=== PATIENT | male | born 1955 | race Two or more races ===

== ENCOUNTER 2019-10-06 14:23 | Outpatient (CLI) | payer MEDICARE, OTHER, SELFPAY ==
--- NOTE | 2019-10-06 14:34 | XR_ITS ---
WS: [id number] XR hip RT 2-3V wo/w pel* [id number] REASON FOR EXAM: PAIN IN JOINT OF RIGHT HIP/R HIP REPLACEMENT FINDINGS: There is evidence of fusion through the acetabulum. With a metal plate in position. In total hip arthroplasty with 2 components is seen bone cemented seen in the acetabulum. Acetabulum component is satisfactory as well as the femoral shaft component no dysfunction is seen. XR/XR hip RT 2-3V wo/w pel* [id number] IMPRESSION: Total hip replacement with evidence of prior fusion to the acetabulum.
== END 2019-10-06 14:24 | disposition home or self-care (01) ==
LOC: RAD 14:30
PROVIDERS: Family Provider Family Medicine; PCP Family Medicine; Visit Provider Family Medicine
DX: Z96.641 Presence of right artificial hip joint (principal)
CPT/HCPCS: 73502

== ENCOUNTER 2019-10-15 07:43 | Outpatient (CLI) | payer MEDICARE, OTHER, SELFPAY ==
--- NOTE | 2019-10-15 | CT_ITS ---
WS: [id number] CT RIGHT HIP NONCONTRAST. HISTORY: RIGHT hip pain. Technique: All CT scans at [facility] use at least one of these dose optimization techniq ues: automated exposure control; mA and/or kV adjustment per patient size (includes targeted exams wh ere dose is matched to clinical indication); or iterative reconstruction. DLP: 1790.88 mGycm COMPARISON: RIGHT hip radiograph 10/06/2019. Significant beam hardening artifact from extensive orthopedic plates and screw and prosthesis fixatio n in the RIGHT pelvis and hip. Prosthetic components and the relationship to the bone is poorly evalu ated due to the significant artifact. There is extensive fluid and soft tissue thickening beginning a round the acetabular component and extending surrounding the femoral head. Fluid collection extends o zak a width of at least 13.6 cm with extension to the subcutaneous soft tissues. Length of the fluid component is 12.8 cm. There is soft tissue edema and infiltration extending very superficial over the lateral hip. There is increased lucency surrounding the prosthetic component that extends into the i nferior pubic rami laterally. Lucency has increased since 02/05/2019 radiograph. There is actually a fr acture through lateral inferior pubic rami which may be pathologic. Extensive vascular calcifications in the femoral and deep profunda. Medial migration of the femoral h ead prosthesis. Near-complete fusion of the RIGHT SI joint. CT/CT hip RT wo con* [id number] IMPRESSION: 1. Large soft tissue fluid like collection surrounding the hardware in the RIG HT acetabulum and femoral head prosthesis. Fluid collection measures at least 1 3.6 x 12.8 cm. Fluid extends very superficial over the lateral hip. Recommend s urgical drainage for possible infectious process. 2. Increased lucency in the lateral inferior pubic rami surrounding a componen t of prosthetic hardware. There is also a pathological fracture present involvi ng the inferior pubic rami. Osteomyelitis and loosening should be considered.
== END 2019-10-15 07:44 | disposition home or self-care (01) ==
LOC: RADWPI 07:48
PROVIDERS: Family Provider Family Medicine; PCP Family Medicine; Visit Provider Family Medicine
DX: M25.551 Pain in right hip (principal); Z96.643 Presence of artificial hip joint, bilateral; M25.451 Effusion, right hip
CPT/HCPCS: 73700

== ENCOUNTER → 2019-12-30 10:21 | Outpatient (BNVA) | payer MEDICARE, OTHER, SELFPAY | PROVIDERS: Family Provider Family Medicine; PCP Family Medicine; Visit Provider Internal Medicine Rheumatology | DX: M45.0 Ankylosing spondylitis of multiple sites in spine (principal); Z11.59 Encounter for screening for other viral diseases; Z79.899 Other long term (current) drug therapy; Z11.1 Encounter for screening for respiratory tuberculosis; Z96.643 Presence of artificial hip joint, bilateral; Z72.89 Other problems related to lifestyle | CPT/HCPCS: 36415; 80076; 82565; 85025; 85651; 86140; 86431; 86480; 86704; 86803; 86812; 87340; 99204 ==

== ENCOUNTER 2020-01-03 14:57 | Outpatient (CLI) | payer MEDICARE, OTHER, SELFPAY ==
--- NOTE | 2020-01-03 13:00 | XR_ITS ---
WS: [id number] XR chest 2V* [id number] REASON FOR EXAM: ankylosing spondylitis FINDINGS: Borderline cardiomegaly is seen. The thoracic spine was essentially normal. The lung tavarez are well aerated. No pneumonia, pleural effusion, pulmonary edema, or mass effect. The hilum and apices normal. No osseous abnormalities. XR/XR chest 2V* [id number] IMPRESSION: Negative chest for acute findings.
--- NOTE | 2020-01-03 13:30 | XR_ITS ---
WS: [id number] XR hand RT min 3V* [id number] REASON FOR EXAM: ankylosing spondylitis FINDINGS: Degenerate changes of the radial scaphoid articulation. There is a remote fracture of the distal fifth metacarpal. The remaining phalanges metacarpals and carpals were normal. XR/XR hand RT min 3V* [id number] IMPRESSION: Degenerate changes of the radial scaphoid articulation. Remote fracture of the distal fifth metacarpal.
--- NOTE | 2020-01-03 14:00 | XR_ITS ---
WS: [id number] XR hand LT min 3V* [id number] REASON FOR EXAM: ankylosing spondylitis FINDINGS: A foreign body at T7 metal is seen overriding the distal aspects of the first metacarpal is 5.63 cm. The remaining phalanges metacarpals and carpals appear to be essentially normal. XR/XR hand LT min 3V* [id number] IMPRESSION: Are and body in the head of the first metacarpal piece of metal.
--- NOTE | 2020-01-03 14:30 | XR_ITS ---
WS: [id number] XR foot RT min 3V* [id number] REASON FOR EXAM: ankylosing spondylitis FINDINGS: Hallux valgus changes of the first tarsal phalangeal junction. There is evidence of metatarsal adductus changes of the second through fourth metatarsals . There is a prominent calcaneal spur present. Heavy arteriosclerotic changes are seen. XR/XR foot RT min 3V* [id number] IMPRESSION: Calcaneal spur Mild hallux valgus changes Metatarsal adductus changes second through fourth metatarsal
--- NOTE | 2020-01-03 15:00 | XR_ITS ---
WS: [id number] XR pelvis 1-2V* [id number] REASON FOR EXAM: ankylosing spondylitis FINDINGS: Sacroiliac joints show mild sacroiliitis. There is a metal plate through both ischii lungs. Both hip joints show total hip replacements. The alignment appears to be satisfactory. XR/XR pelvis 1-2V* [id number] IMPRESSION: Postop changes both hip joints with fusion of the iliac ischium. Total hip replacement satisfactory. Mild sacroiliitis changes.
--- NOTE | 2020-01-03 15:15 | XR_ITS ---
WS: [id number] XR lumbar spine 2-3V* [id number] REASON FOR EXAM: ankylosing spondylitis FINDINGS: 5 functional lumbar vertebra as are seen. The disc spaces are all normal. The lamina, pedicles, are normal. There is questionable spondylolysis on the left side. XR/XR lumbar spine 2-3V* [id number] IMPRESSION: Interval spondylolysis on the left side Mild sacroiliitis changes bilaterally.
--- NOTE | 2020-01-03 15:45 | XR_ITS ---
WS: [id number] XR thoracic spine 3V* [id number] REASON FOR EXAM: ankylosing spondylitis FINDINGS: The vertebral bodies and disc spaces are all normal. No evidence of ankylosing changes identified. The pedicle, spinous processes, are all normal. No fractures or other dyscrasias. XR/XR thoracic spine 3V* [id number] IMPRESSION: Negative thoracic spine. No evidence of ankylosing spondylitis.
== END 2020-01-03 14:58 | disposition home or self-care (01) ==
PROVIDERS: Family Provider Family Medicine; PCP Family Medicine; Visit Provider Internal Medicine Rheumatology
DX: M45.9 Ankylosing spondylitis of unspecified sites in spine (principal); M47.816 Spondylosis without myelopathy or radiculopathy, lumbar region; Z96.643 Presence of artificial hip joint, bilateral; M77.31 Calcaneal spur, right foot; M79.5 Residual foreign body in soft tissue; S62.306A Unspecified fracture of fifth metacarpal bone, right hand, initial encounter for closed fracture; X58.XXXA Exposure to other specified factors, initial encounter
CPT/HCPCS: 71046; 72072; 72100; 72170; 73130; 73630

== ENCOUNTER → 2020-02-15 15:17 | Outpatient (BNVA) | payer MEDICARE, OTHER, SELFPAY | PROVIDERS: Family Provider Family Medicine; PCP Family Medicine; Visit Provider Internal Medicine Rheumatology | DX: M45.0 Ankylosing spondylitis of multiple sites in spine (principal); M46.1 Sacroiliitis, not elsewhere classified; M19.90 Unspecified osteoarthritis, unspecified site; Z96.643 Presence of artificial hip joint, bilateral; Z71.89 Other specified counseling; Z79.899 Other long term (current) drug therapy; Z15.89 Genetic susceptibility to other disease | CPT/HCPCS: 99214 ==

== ENCOUNTER → 2020-05-08 13:25 | Outpatient (BNVA) | payer MEDICARE, OTHER, SELFPAY | PROVIDERS: Family Provider Family Medicine; PCP Family Medicine; Visit Provider Internal Medicine Rheumatology | DX: Z79.899 Other long term (current) drug therapy (principal); M19.90 Unspecified osteoarthritis, unspecified site | CPT/HCPCS: 36415; 80076; 82565; 85025; 85651; 86140 ==

== ENCOUNTER → 2020-05-15 13:05 | Outpatient (BNVA) | payer MEDICARE, OTHER, SELFPAY | PROVIDERS: Family Provider Family Medicine; PCP Family Medicine; Visit Provider Internal Medicine Rheumatology | DX: M45.0 Ankylosing spondylitis of multiple sites in spine (principal); Z79.899 Other long term (current) drug therapy; M46.1 Sacroiliitis, not elsewhere classified; Z15.89 Genetic susceptibility to other disease; M19.90 Unspecified osteoarthritis, unspecified site; Z96.643 Presence of artificial hip joint, bilateral | CPT/HCPCS: 85025; 99214 ==

== ENCOUNTER → 2020-06-21 12:56 | Outpatient (BNVA) | payer MEDICARE, OTHER, SELFPAY | PROVIDERS: Family Provider Family Medicine; PCP Family Medicine; Visit Provider Internal Medicine Rheumatology | DX: Z79.899 Other long term (current) drug therapy (principal) | CPT/HCPCS: 36415; 80076; 82565; 85025; 85651; 86140 ==

== ENCOUNTER → 2020-08-23 13:55 | Outpatient (BNVA) | payer MEDICARE, OTHER, SELFPAY | PROVIDERS: Family Provider Family Medicine; PCP Family Medicine; Visit Provider Internal Medicine Rheumatology | DX: M45.0 Ankylosing spondylitis of multiple sites in spine (principal); Z79.899 Other long term (current) drug therapy; Z15.89 Genetic susceptibility to other disease; M19.90 Unspecified osteoarthritis, unspecified site; M46.1 Sacroiliitis, not elsewhere classified; Z96.643 Presence of artificial hip joint, bilateral | CPT/HCPCS: 99214 ==

== ENCOUNTER → 2020-10-17 14:28 | Outpatient (BNVA) | payer MEDICARE, OTHER, SELFPAY | PROVIDERS: Family Provider Family Medicine; PCP Family Medicine; Visit Provider Internal Medicine Rheumatology | DX: M45.0 Ankylosing spondylitis of multiple sites in spine (principal); M46.1 Sacroiliitis, not elsewhere classified; Z79.899 Other long term (current) drug therapy; M19.90 Unspecified osteoarthritis, unspecified site; M25.559 Pain in unspecified hip; Z15.89 Genetic susceptibility to other disease; Z96.643 Presence of artificial hip joint, bilateral | CPT/HCPCS: 36415; 73502; 80076; 82565; 85025; 86140; 99214 ==

== ENCOUNTER 2020-10-17 15:44 | Outpatient (CLI) | payer MEDICARE, OTHER, SELFPAY ==
--- NOTE | 2020-10-17 16:05 | XR_ITS ---
WS: [id number] Right hip, AP and frog-leg, AP pelvis, 10/17/2020 Clinical Data: Z79.899 - Other snf (current) drug therapy Comparison: AP pelvis, 01/03/2020. Findings: The patient has had bilateral hip arthroplasties. The right hip arthroplasty has a long stem prosthes is in the femoral medullary canal held in place with 3 proximal circumferential wires. Complex revisi on of both iliac wings is again noted. One of the screws holding the plate to the right iliac wing vallejo s fractured. The SI joints are fused. XR/XR hip RT 2-3V wo/w pel* [id number] Impression: 1. Bilateral hip arthroplasties unchanged. 2. Complex revisions of both iliac wings with fracture of one of the screws on the right. 3. Obliteration of both SI joints.
[2020-10-17 16:52] LABS: Basophils % 0.4 %; Eosinophils % 0.2 %; Hematocrit 39.7 % (42.0-52.0); Hemoglobin 12.6 g/dL (11.7-16.6); Lymphocytes # 0.4 10^3/uL (0.8-4.8); Lymphocytes % 7.7 %; Mean Corpuscular HGB Conc 31.7 g/dL (30.0-36.0); Mean Corpuscular Hemoglobin 29.6 pg (28.0-34.0); Mean Corpuscular Volume 93.4 fL (80-94); Mean Platelet Volume 9.3 fL (7.4-10.4); Monocytes # 0.2 10^3/uL (0.2-0.9); Monocytes % 4.4 %; Neutrophils # 3.97 10^3/uL (1.8-7.7); Neutrophils % 86.9 %; Nucleated Red Blood Cells % 0 %; Platelet Count 184 10^3/cmm (130-400); Red Blood Count 4.25 10^6/uL (4.1-5.3); Red Cell Distribution Width 15.2 % (12.1-15.1); White Blood Count 4.6 10^3/uL (4.0-10.0)
[2020-10-17 17:23] LABS: Alanine Aminotransferase 18 U/L (0-41); Albumin Level 3.7 g/dL (3.5-5.2); Alkaline Phosphatase 90 IU/L (40-130); Aspartate Amino Transferase 18 U/L (0-40); C Reactive Protein 6.9 mg/L (0.0-4.9); Glomerular Filtration Rate 112.5 mL/min (90-130); Total Bilirubin 0.3 mg/dL (0.15-1.2); Total Protein 6.7 g/dL (6.6-8.7)
== END 2020-10-17 15:45 | disposition home or self-care (01) ==
PROVIDERS: PCP Family Medicine; Visit Provider Internal Medicine Rheumatology
DX: M19.90 Unspecified osteoarthritis, unspecified site (principal); M25.559 Pain in unspecified hip; Z79.899 Other long term (current) drug therapy
CPT/HCPCS: 36415; 73502; 80076; 82565; 85025; 86140

== ENCOUNTER 2020-12-08 15:29 | Emergency (ER) | payer MEDICARE, OTHER, SELFPAY ==
[2020-12-08 15:40] VITALS: BP 124/78; PULSE 74; RESP 18; TEMP 36.8; O2SAT 95; BMI 30.2
--- NOTE | 2020-12-08 16:30 | XRR_ITS ---
PROCEDURE INFORMATION: Exam: XR Chest Exam date and time: 12/08/2020 4:58 PM Age: 65 years old Clinical indication: Cough; Additional info: Dyspnea/cough TECHNIQUE: Imaging protocol: XR of the chest. Views: 1 view. COMPARISON: CR XR chest 2V* [id number] 01/03/2020 3:10 PM FINDINGS: Lungs: Stable mild chronic interstitial prominence in both lungs. No focal consolidation. Pleural spaces: Unremarkable. No pleural effusion. No pneumothorax. Heart/Mediastinum: Unremarkable. No cardiomegaly. Bones/joints: Unremarkable. XR/XR chest 1V portable [id number] IMPRESSION: No acute findings.
--- NOTE | 2020-12-08 16:52 | ED_ITS ---
HPI - General Adult General: Chief complaint: General Medical Stated complaint: Bleeding from Surgical Site/COVID + Time Seen by Provider: 12/08/20 16:30 History of Present Illness: HPI narrative: 65-year-old male presents emergency room with complaint of blood from 2 drainage sites were drainage removed yesterday and his right proximal thigh he had a joint revision he is on Coumadin per his report. He had this done in [place] was discharged yesterday and drove back here with a family member who we will be recuperating with. Onset (ago): hour(s) Location: lower extremity (Right proximal lateral thigh) Relieving factors: none Exacerbating factors: none Associated symptoms: Deny chest pain, confusion, cough, diaphoresis, decreased appetite, dyspnea, fevers/chills, headache(s), malaise, nausea, rash, palpitations, seizures, short of breath, syncope, vomiting or weakness Treatments prior to arrival: none Review of Systems Const: Denies: malaise or diaphoresis ENMT: Denies: throat pain, ear or mastoid pain, nasal discharge or nasal congestion Card: Denies: chest pain, palpitations or syncope Resp: Denies: dyspnea GI: Denies: nausea or vomiting : Denies: flank pain, dysuria, urinary frequency or urinary urgency Skin/Breast: Denies: rash Neuro: Denies: headache(s) or confusion PFSH ED PFSH: Medical History Ankylosing spondylitis Bilateral sacroiliitis Encounter for screening for other viral diseases GERD (gastroesophageal reflux disease) High risk medication use History of CVA (cerebrovascular accident) HLA B27 (HLA B27 positive) Hypertension Immunization counseling Inflammatory arthritis Stroke Umbilical hernia Surgical History History of hip replacement bilateral with mult surg and screws etc S/P hip replacement Family History Other CAD (coronary artery disease) Diabetes Hypertension Rheumatoid arthritis Stroke Denies family history of Lupus Cancer Social History Smoking and tobacco status: never smoked Alcohol intake: never History of recent travel: No Physical Exam Const: COMMON NORMALS: no acute distress GENERAL APPEARANCE: cooperative and comfortable ORIENTATION/CONSCIOUSNESS: Yes awake, Yes oriented to person, Yes oriented to place and Yes oriented to time HENMT: COMMON NORMALS: normocephalic, atraumatic and hearing grossly normal bilaterally HEAD & SCALP: normocephalic and atraumatic Neck/C-Spine: COMMON NORMALS: no JVD Resp: COMMON NORMALS: normal respiratory effort, No retractions, No use of accessory muscles and clear to auscultation bilaterally AUSCULTATION: clear to auscultation bilaterally Cardio: COMMON NORMALS: no JVD, regular rate, regular rhythm and No murmurs present (Cardio) RATE: regular rate RHYTHM: regular rhythm GI: COMMON NORMALS: Soft to palpation and No hepatosplenomegaly present AUSCULTATION: Yes normoactive bowel sounds PALPATION: Yes Soft to palpation, No Tenderness to palpation present (GI), No Guarding due to palpation present (GI) and Yes No hepatosplenomegaly present Extremity: NARRATIVE EXTREMITY EXAM: 2 puncture wounds in the right proximal lateral thigh a few inches above the incision line. Small amount of oozing from the wounds. The incision is dry well approximated no signs of infection there is no purulent drainage. Neuro: SENSORIUM/ORIENTATION: Yes oriented to person, Yes oriented to place and Yes oriented to time Skin: COMMON NORMALS: no rashes or lesions noted GENERAL SKIN EXAM: no rashes or lesions noted Course Vital Signs: Vital signs: Vital Signs Temperature 98.2 F 12/08/20 15:40 Pulse Rate 87 12/08/20 18:17 Respiratory Rate 18 12/08/20 18:17 Blood Pressure 115/74 12/08/20 18:17 Pulse Oximetry 98 12/08/20 18:17 MDM - General Adult MDM Narrative: Medical decision making narrative: Bleeding from the KOJO drain site controlled by direct pressure reviewed labs hemoglobin is low would recommend he have that rechecked in a couple of days. Initially told me he is on Coumadin reviewed his meds he is actually on Eliquis he should have this reevaluated in a few days continue to leave the pressure dressing on for the next few days and return if not improving or worsens. Lab Data: Labs: Lab Results 12/08/20 12/08/20 12/08/20 Range/Units 17:22 17:22 17:22 WBC 5.3 (4.0-10.0) 10^3/ uL RBC 2.65 L (4.1-5.3) 10^6/u L Hgb 8.2 L (11.7-16.6) g/dL Hct 25.9 L (42.0-52.0) % MCV 97.7 H (80-94) fL MCH 30.9 (28.0-34.0) pg MCHC 31.7 (30.0-36.0) g/dL RDW 15.4 H (12.1-15.1) % Plt Count 228 (130-400) 10^3/c mm MPV 9.5 (7.4-10.4) fL Neut % (Auto) 78.3 % Lymph % (Auto) 10.7 % Roseau % (Auto) 5.8 % Eos % (Auto) 0.8 % Baso % (Auto) 0.4 % Neut # (Auto) 4.16 (1.8-7.7) 10^3/u L Lymph # (Auto) 0.6 L (0.8-4.8) 10^3/u L Roseau # (Auto) 0.3 (0.2-0.9) 10^3/u L Eos # (Auto) 0.0 (0.0-0.8) 10^3/u L Baso # (Auto) 0.0 (0.0-0.1) 10^3/u L Nucleated RBC % (a uto) 1.1 % Nucleated RBCs # 0.1 /100WBC PT 14.20 (12.1-14.9) SECO NDS INR 1.06 (0.8-1.2) APTT 32.1 (23.9-36.7) SECO NDS Sodium 140 (136-145) mmol/L Potassium 5.0 (3.5-5.1) mmol/L Chloride 108 H (98-107) mmol/L Carbon Dioxide 25 (22-29) mmol/L Anion Gap 12.0 (5-19) BUN 13 (8-23) mg/dL Creatinine 0.9 (0.7-1.2) mg/dL GFR Calculation 84.2 L (90-130) mL/min Glucose 99 (65-115) mg/dL Calculated Osmolal ity 290 (285-295) mOsm/k g Calcium 8.8 (8.5-10.5) mg/dL Total Bilirubin 0.2 (0.15-1.2) mg/dL AST 47 H (0-40) U/L ALT 37 (0-41) U/L Alkaline Phosphata se 147 H (40-130) IU/L Total Protein 6.4 L (6.6-8.7) g/dL Albumin 3.6 (3.5-5.2) g/dL Globulin 2.8 (1.3-4.6) g/dL Discharge Plan Discharge Patient Disposition: Home Clinical Impression: S/P hip replacement, KOJO drain bleeding Condition: Stable Prescriptions: No Action atenolol 50 mg tablet 50 mg PO DAILY RF: 0 gabapentin 300 mg capsule 300 mg PO TID Qty: 90 RF: 3 omeprazole 40 mg capsule,delayed release(DR/EC) 40 mg PO DAILY Qty: 30 RF: 3 loperamide 2 mg Tablet 2 mg PO BID RF: 0 Lovenox 40 mg/0.4 mL Syringe 40 mg SUBCUT Q12H RF: 0 azithromycin 500 mg Tablet 500 mg PO DAILY RF: 0 Prevalite 4 gram Powder In Packet 4 g PO DAILY RF: 0 Eliquis 5 mg Tablet 5 mg PO BID RF: 0 Vitamin D2 50,000 unit PO Q7D RF: 0 Vitamin D3 5,000 unit PO DAILY RF: 0 Discharge Orders: Discharge ED (Routine); Ordered 12/08/20 Ordered By: Matt Jasso Referrals: Ermelinda Montana MD [Primary Care Provider] - Discharge Diet: Usual diet Discharge Activity: Limit activity as instructed Patient Instructions: Opioid Safety Activity Restrictions/Additional Instructions: Change dressing once daily. 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
[2020-12-08 17:29] LABS: Basophils % 0.4 %; Eosinophils % 0.8 %; Hematocrit 25.9 % (42.0-52.0); Hemoglobin 8.2 g/dL (11.7-16.6); Lymphocytes # 0.6 10^3/uL (0.8-4.8); Lymphocytes % 10.7 %; Mean Corpuscular HGB Conc 31.7 g/dL (30.0-36.0); Mean Corpuscular Hemoglobin 30.9 pg (28.0-34.0); Mean Corpuscular Volume 97.7 fL (80-94); Mean Platelet Volume 9.5 fL (7.4-10.4); Monocytes # 0.3 10^3/uL (0.2-0.9); Monocytes % 5.8 %; Neutrophils # 4.16 10^3/uL (1.8-7.7); Neutrophils % 78.3 %; Nucleated Red Blood Cells # 0.1 /100WBC; Nucleated Red Blood Cells % 1.1 %; Platelet Count 228 10^3/cmm (130-400); Red Blood Count 2.65 10^6/uL (4.1-5.3); Red Cell Distribution Width 15.4 % (12.1-15.1); White Blood Count 5.3 10^3/uL (4.0-10.0)
[2020-12-08 17:46] LABS: INR 1.06 (0.8-1.2)
[2020-12-08 17:47] LABS: Alanine Aminotransferase 37 U/L (0-41); Albumin Level 3.6 g/dL (3.5-5.2); Alkaline Phosphatase 147 IU/L (40-130); Aspartate Amino Transferase 47 U/L (0-40); Blood Urea Nitrogen 13 mg/dL (8-23); Calcium 8.8 mg/dL (8.5-10.5); Carbon Dioxide 25 mmol/L (22-29); Chloride 108 mmol/L (98-107); Globulin 2.8 g/dL (1.3-4.6); Glomerular Filtration Rate 84.2 mL/min (90-130); Glucose 99 mg/dL (65-115); Osmolality Calculated 290 mOsm/kg (285-295); Partial Thromboplastin Time 32.1 SECONDS (23.9-36.7); Sodium 140 mmol/L (136-145); Total Bilirubin 0.2 mg/dL (0.15-1.2); Total Protein 6.4 g/dL (6.6-8.7)
[2020-12-08 18:17] VITALS: BP 115/74; PULSE 87; RESP 18; O2SAT 98
[2020-12-08] MEDS: HYDROcodone-acetaminophen 10-325 mg Tablet 1 TAB PO (18:23)
== END 2020-12-08 18:23 | disposition home or self-care (01) ==
PROVIDERS: Emergency Provider Family Medicine; PCP Family Medicine
DX: M96.830 Postprocedural hemorrhage of a musculoskeletal structure following a musculoskeletal system procedure (principal); Z96.643 Presence of artificial hip joint, bilateral; Z79.01 Long term (current) use of anticoagulants; Z86.73 Personal history of transient ischemic attack (TIA), and cerebral infarction without residual deficits; I10 Essential (primary) hypertension
CPT/HCPCS: 71045; 80053; 85025; 85610; 85730; 99283

== ENCOUNTER 2021-02-19 15:08 | Outpatient (CLI) | payer MEDICARE, OTHER, SELFPAY ==
--- NOTE | 2021-02-19 15:00 | USCV_ITS ---
Jay Mota Age: 65 Gender: M : 1955 Exam Date: 02/19/2021 15:20 Ordering Phys: Nick Regalado MD Technologist: Rodolfo Reid Exam Location: [facility] [place] Indication: RLE PAIN HISTORY: Lower extremity pain. PROCEDURES: Venous duplex imaging was performed in only the right lower extremity. The following venous structures were evaluated: common femoral vein, profunda vein, proximal portion of the greater saphenous vein, superficial femoral vein, and the popliteal vein. In addition, the posterior tibial and peroneal trunk were evaluated. Serial compression, augmentation maneuvers, and spectral Doppler flow evaluation were performed. FINDINGS: Normal 2-D Doppler and augmentation and compressibility throughout the lower extremity venous structures. Additional imaging through the proximal calf veins also reveals no thrombus. Limited evaluation of the greater saphenous vein is patent with no thrombus.. CONCLUSIONS No DVT right lower extremity. Dr. Dana Rodríguez DO (Electronically Signed) Final Date: 19 February 2021 16:05 S
== END 2021-02-19 15:09 | disposition home or self-care (01) ==
PROVIDERS: PCP Family Medicine; Visit Provider Internal Medicine Rheumatology
DX: M45.0 Ankylosing spondylitis of multiple sites in spine (principal); M46.1 Sacroiliitis, not elsewhere classified; M19.90 Unspecified osteoarthritis, unspecified site; M79.604 Pain in right leg; Z79.899 Other long term (current) drug therapy; Z15.89 Genetic susceptibility to other disease; Z96.649 Presence of unspecified artificial hip joint; Z71.89 Other specified counseling
CPT/HCPCS: 93971; 99214

== ENCOUNTER 2021-04-04 09:00 | Outpatient (CLI) | payer MEDICARE, OTHER, SELFPAY ==
[2021-04-04 09:20] VITALS: BP 150/88; PULSE 75; RESP 20; TEMP 36.2; O2SAT 96
[2021-04-04] MEDS: acetaminophen 325 mg Tablet 650 MG PO (10:00)
[2021-04-04] MEDS: diphenhydrAMINE 50 mg/mL SDV 1mL 25 MG IVP (10:03)
[2021-04-04] MEDS: sodium chloride 0.9% 250 ML 75 ML IV (10:03)
[2021-04-04 10:29] VITALS: BP 156/98; PULSE 70; RESP 18; TEMP 36.4; O2SAT 96
[2021-04-04 11:02] VITALS: BP 154/97; PULSE 66; RESP 18; TEMP 36.7; O2SAT 95
[2021-04-04 11:52] VITALS: BP 151/94; PULSE 69; RESP 18; TEMP 36.6; O2SAT 97
[2021-04-04 12:52] VITALS: BP 153/83; PULSE 72; RESP 18; TEMP 36.6; O2SAT 95
== END 2021-04-04 09:01 | disposition home or self-care (01) ==
LOC: ONCMED 09:04
PROVIDERS: PCP Family Medicine; Visit Provider Internal Medicine Rheumatology
DX: M45.0 Ankylosing spondylitis of multiple sites in spine (principal)
CPT/HCPCS: 96365; 96366; 96375; J1200; J2920; J7050; Q5104

== ENCOUNTER 2021-04-17 10:29 | Outpatient (CLI) | payer MEDICARE, OTHER, SELFPAY ==
--- NOTE | 2021-04-17 | USCV_ITS ---
Jay Mota Age: 66 Gender: M : 1955 Exam Date: 04/17/2021 13:43 Ordering Phys: Ermelinda Montana MD Technologist: Rodolfo Reid [place] [facility] [place]: SOB/HTN BP: 139 / 74 HR: 85 Rhythm: Sinus Technical Quality: Technically difficult study MEASUREMENTS (Male / Female) Normal Values 2D ECHO LV Diastolic Diameter PLAX 4.4 cm 4.2 - 5.9 / 3.9 - 5.3 cm LV Systolic Diameter PLAX 2.6 cm IVS Diastolic Thickness 1.5 cm 0.6 - 1.0 / 0.6 - 0.9 cm IVS Systolic Thickness 1.4 cm LVPW Diastolic Thickness 1.5 cm 0.6 - 1.0 / 0.6 - 0.9 cm LVPW Systolic Thickness 1.4 cm LVOT Diameter 2.1 cm LV Ejection Fraction 2D Teich 67.7 % LV Ejection Fraction MOD 2C 47.7 % LV Ejection Fraction 2C AL 47.2 % LA Diameter 3.9 cm LA Width 4.2 cm LA Height 5.3 cm RA Width 3.9 cm RA Height 4.6 cm M-MODE MV E Point Septal Separation 0.8 cm DOPPLER AV Peak Velocity 129.0 cm/s LVOT Peak Velocity 75.0 cm/s AV Area Cont Eq vti 2.1 cm squared AV Area Cont Eq pk 2.0 cm squared MV Area PHT 5.0 cm squared Mitral E to A Ratio 0.8 MV E' Velocity 31.5 cm/s Mitral E to MV E' Ratio 10.7 Mitral E to LV E' Lateral Ratio 13.3 Mitral E to LV E' Septal Ratio 8.9 TR Peak Velocity 124.0 cm/s TR Peak Gradient 6.2 mmHg TV Peak E Velocity 72.0 cm/s Right Atrial Pressure 3.0 mmHg Pulmonary Artery Systolic Pressu 9.2 mmHg FINDINGS Left Ventricle Normal left ventricular cavity size. Normal left ventricular systolic function. No regional wall motion abnormalities. Left ventricular ejection fraction is estimated at 65 %. Right Ventricle The right ventricle is normal in size and function. Right Atrium The right atrium is normal in size. Left Atrium The left atrium is normal in size. Mitral Valve Structurally normal mitral valve without significant stenosis or prolapse. There is no mitral regurgitation. Aortic Valve Moderate aortic valve calcification. No aortic valve stenosis. Trace aortic valve regurgitation. Tricuspid Valve Structurally normal tricuspid valve without significant stenosis or regurgitation. Pulmonary artery systolic pressure is normal. Pulmonic Valve Structurally normal pulmonic valve without significant stenosis. There is no pulmonic regurgitation. Pericardium Normal pericardium without effusion. Aorta Normal ascending aorta dimension. CONCLUSIONS 1-Normal left ventricular cavity size. Normal left ventricular systolic function. No regional wall motion abnormalities. Left ventricular ejection fraction is estimated at 65 %. 2-Moderate aortic valve calcification. No aortic valve stenosis. Trace aortic valve regurgitation. 3-Structurally normal mitral valve without significant stenosis or prolapse. There is no mitral regurgitation. 4-There is no pericardial effusion. 5-Pulmonary artery systolic pressure is within normal limits. 6-Right atrial pressure is around 5 mm of mercury. 7-There are no prior echocardiogram studies to compare. Susana Mora MD (Electronically Signed) Final Date: 17 April 2021 19:26 S
[2021-04-17 11:03] VITALS: BMI 34.0
--- NOTE | 2021-04-17 11:37 | ECG_ITS ---
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 Interpretive Statements NAME OF STUDY: LEXISCAN SESTAMIBI STRESS TEST INDICATION: Hypertension PROCEDURE: At the baseline, the blood pressure was 154/90 mmHg with a heart rate of 66 bpm. The electrocardiogram showed sinus rhythm, normal axis with normal ST and T's. The Lexiscan was infused over a period of 20 seconds. A total of 0.4 milligrams of Lexiscan was infused. The stress phase was continued for a total of 5 minutes. Heart rate at the end of the stress phase was 91 bpm with a blood pressure of 166/98 mmHg. The EKG at the peak infusion revealed no significant ST-T wave changes. The study was terminated to protocol completion. Sestamibi was injected 20 seconds after the Lexiscan infusion. Blood pressure at the end of the recovery phase was 154/102 mmHg with a heart rate of 85 beats per minute. CONCLUSION: 1. No significant EKG changes with the LexiScan infusion. 2. No LexiScan induced chest pain or cardiac arrhythmia. 3. Normal blood pressure and heart rate response. 4. Sestamibi/sestamibi perfusion scan pending; see separate report. Electronically Signed On 04-20-2021 13:04:[address] M.D. [id number]
--- NOTE | 2021-04-17 11:38 | NMCV_ITS ---
NM [place] perf SPECT r/s* [id number] Jay Mota Age: 66 Gender: M : 1955 Exam Date: 04/17/2021 11:38 Ordering Phys: Ermelinda Montana MD Technologist: JASON Piña Exam Location: [facility] Indications: HYPERTENSION STRESS TEST Please see separate stress test report in [facility] for full findings IMAGE PROTOCOL Rest/Stress 1 Lexiscan Day Radiopharmaceutical Dose (mCi) Administration Site Administered by Rest: Tc-99m 10.9 IV JASON Rm Sestamibi Stress:Tc-99m 32.0 IV JASON Rm Sestamibi Rest: 17-Apr-2021 60 Discovery 630 Stress: 17-Apr-2021 30 Discovery 630 0.4mg Lexiscan. Supine position only as patient was unable to lay prone. SPECT RESULTS Technical Quality: Excellent Raw Data Analysis: Normal Image Corrections: No attenuation or motion correction applied Summed Stress Score: 18 Summed Rest Score: 9 Summed Difference Score: 9 PERFUSION FINDINGS Medium sized perfusion abnormality of moderate severity of basal to mid anterior, basal to mid anterolateral torres on rest images with reversibility in entire anterior and lateral torres. FUNCTIONAL RESULTS (calculated via Gated SPECT) Stress Image LV EF (%): 51 Stress EDV (mL):126 TID: 1.05 Stress ESV (mL):62 FUNCTIONAL FINDINGS: The left ventricle is normal in size. Transient Ischemia Dilatation of 1.1. There is mildly reduced left ventricular systolic function. The left ventricular ejection fraction is low normal with a value of 51%. There is normal left ventricular wall thickening with no regional wall motion abnormality. IMPRESSIONS 1. Medium sized partially reversible perfusion abnormality of moderate severity of basal to apical anterior, basal to mid anterolateral and mid inferolateral torres. 2. This is suggestive of old myocardial infarction in left anterior descending/circumflex artery territory with moderate elijah-infarct ischemia. 3. The left ventricular ejection fraction is low normal with a value of 51%. 4. There is normal left ventricular wall thickening with no regional wall motion abnormality. 5. No prior similar studies to compare. Tara Way MD (Electronically Signed) Final Date: 18 April 2021 21:52 S
[2021-04-17] MEDS: regadenoson 0.4 Mg/5 ml Syringe IVP (12:42)
[2021-04-17 13:32] VITALS: BP 157/102; PULSE 89
== END 2021-04-17 10:30 | disposition home or self-care (01) ==
LOC: CDL 10:31
PROVIDERS: PCP Family Medicine; Visit Provider Family Medicine
DX: I10 Essential (primary) hypertension (principal); R06.02 Shortness of breath; I35.1 Nonrheumatic aortic (valve) insufficiency; I25.9 Chronic ischemic heart disease, unspecified
CPT/HCPCS: 78452; 93017; 93306; A9500; J2785

== ENCOUNTER 2021-05-08 10:00 | Outpatient (CLI) | payer MEDICARE, OTHER, SELFPAY ==
[2021-05-08 10:31] VITALS: BP 139/85; PULSE 71; RESP 18; TEMP 36.6; O2SAT 95
[2021-05-08 11:05] LABS: Basophils % 0.6 %; Eosinophils # 0.1 10^3/uL (0.0-0.8); Hematocrit 39.4 % (42.0-52.0); Hemoglobin 12.4 g/dL (11.7-16.6); Lymphocytes # 0.5 10^3/uL (0.8-4.8); Lymphocytes % 9.1 %; Mean Corpuscular HGB Conc 31.5 g/dL (30.0-36.0); Mean Corpuscular Hemoglobin 30.3 pg (28.0-34.0); Mean Corpuscular Volume 96.3 fl (80-94); Mean Platelet Volume 10.1 fL (7.4-10.4); Monocytes # 0.4 10^3/uL (0.2-0.9); Monocytes % 7.3 %; Neutrophils # 4.29 10^3/uL (1.8-7.7); Neutrophils % 79.9 %; Nucleated Red Blood Cells % 0 %; Platelet Count 191 10^3/cmm (130-400); Red Blood Count 4.09 10^6/uL (4.1-5.3); White Blood Count 5.4 10^3/uL (4.0-10.0)
[2021-05-08] MEDS: acetaminophen 325 mg Tablet 650 MG PO (11:08)
[2021-05-08] MEDS: sodium chloride 0.9% 250 ML 75 ML IV (11:09)
[2021-05-08] MEDS: diphenhydrAMINE 50 mg/mL SDV 1mL 25 MG IV (11:10)
[2021-05-08 11:31] LABS: Alanine Aminotransferase 20 U/L (0-41); Albumin Level 3.9 g/dL (3.5-5.2); Alkaline Phosphatase 92 IU/L (40-130); Aspartate Amino Transferase 16 U/L (0-40); Glomerular Filtration Rate 83.9 mL/min (90-130); Total Bilirubin 0.3 mg/dL (0.15-1.2); Total Protein 6.9 g/dL (6.6-8.7)
[2021-05-08 12:10] VITALS: BP 136/84; PULSE 62; RESP 18; TEMP 36.3; O2SAT 95
[2021-05-09 13:40] LABS: Erythrocyte Sedimentation Rate 31 mm/hr (0-10)
== END 2021-05-08 10:01 | disposition home or self-care (01) ==
LOC: ONCMED 10:03
PROVIDERS: PCP Family Medicine; Visit Provider Internal Medicine Rheumatology
DX: M45.0 Ankylosing spondylitis of multiple sites in spine (principal)
CPT/HCPCS: 80076; 82565; 85025; 85651; 96365; 96375; J1200; J1602; J7050

== ENCOUNTER 2021-06-05 10:10 | Outpatient (CLI) | payer OTHER, SELFPAY ==
[2021-06-05 10:28] VITALS: BP 124/85; PULSE 104; RESP 18; TEMP 36.3; O2SAT 97
[2021-06-05] MEDS: sodium chloride 0.9% 250 ML 50 ML IV (11:17)
[2021-06-05] MEDS: acetaminophen 325 mg Tablet 650 MG PO (11:18)
[2021-06-05] MEDS: diphenhydrAMINE 50 mg/mL SDV 1mL 25 MG IV (11:19)
[2021-06-05 12:11] VITALS: BP 115/80; PULSE 92; RESP 18; TEMP 36.2; O2SAT 94
== END 2021-06-05 10:11 | disposition home or self-care (01) ==
PROVIDERS: PCP Family Medicine; Visit Provider Internal Medicine Rheumatology
DX: M45.0 Ankylosing spondylitis of multiple sites in spine (principal)
CPT/HCPCS: 96365; 96375; J1200; J1602; J7050

== ENCOUNTER 2021-08-08 10:04 | Outpatient (CLI) | payer MEDICARE, OTHER, SELFPAY ==
[2021-08-08 11:00] VITALS: BP 100/66; PULSE 92; RESP 20; TEMP 36.5; O2SAT 94
[2021-08-08 11:03] LABS: Basophils % 0.5 %; Eosinophils # 0.2 10^3/uL (0.0-0.8); Eosinophils % 3.9 %; Hematocrit 32.3 % (42.0-52.0); Hemoglobin 10.3 g/dL (11.7-16.6); Lymphocytes # 0.4 10^3/uL (0.8-4.8); Lymphocytes % 7.3 %; Mean Corpuscular HGB Conc 31.9 g/dL (30.0-36.0); Mean Corpuscular Hemoglobin 29.6 pg (28.0-34.0); Mean Corpuscular Volume 92.8 fl (80-94); Monocytes # 0.5 10^3/uL (0.2-0.9); Monocytes % 9.2 %; Neutrophils % 78.4 %; Nucleated Red Blood Cells % 0 %; Platelet Count 191 10^3/cmm (130-400); Red Blood Count 3.48 10^6/uL (4.1-5.3); Red Cell Distribution Width 14.9 % (12.1-15.1); White Blood Count 5.9 10^3/uL (4.0-10.0)
[2021-08-08] MEDS: acetaminophen 325 mg Tablet 650 MG PO (11:07)
[2021-08-08] MEDS: sodium chloride 0.9% 250 ML 50 ML IV (11:08)
[2021-08-08] MEDS: diphenhydrAMINE 50 mg/mL SDV 1mL 25 MG IV (11:10)
[2021-08-08 11:25] LABS: Alanine Aminotransferase 13 U/L (0-41); Albumin Level 3.9 g/dL (3.5-5.2); Alkaline Phosphatase 163 IU/L (40-130); Aspartate Amino Transferase 16 U/L (0-40); Erythrocyte Sedimentation Rate 55 mm/hr (0-10); Globulin 3.2 g/dL (1.3-4.6); Glomerular Filtration Rate 24.7 mL/min (90-130); Total Bilirubin 0.2 mg/dL (0.15-1.2); Total Protein 7.1 g/dL (6.6-8.7)
[2021-08-08 12:08] VITALS: BP 102/78; PULSE 91; RESP 18; TEMP 36.2; O2SAT 95
== END 2021-08-08 10:05 | disposition home or self-care (01) ==
LOC: ONCMED 10:10
PROVIDERS: PCP Family Medicine; Visit Provider Internal Medicine Rheumatology
DX: M45.0 Ankylosing spondylitis of multiple sites in spine (principal); Z79.899 Other long term (current) drug therapy
CPT/HCPCS: 80076; 82565; 85025; 85651; 96365; 96375; J1200; J1602; J7050

== ENCOUNTER 2021-10-30 10:59 | Outpatient (CLI) | payer MEDICARE, OTHER, SELFPAY ==
[2021-10-30 11:14] VITALS: BP 97/63; PULSE 97; RESP 18; TEMP 36.4; O2SAT 94
[2021-10-30] MEDS: acetaminophen 325 mg Tablet 650 MG PO (11:37)
[2021-10-30] MEDS: sodium chloride 0.9% 250 ML 75 ML IV (11:38)
[2021-10-30] MEDS: diphenhydrAMINE 50 mg/mL SDV 1mL 25 MG IV (11:39)
[2021-10-30 11:41] LABS: Basophils % 0.6 %; Eosinophils % 0.8 %; Hematocrit 26.8 % (42.0-52.0); Hemoglobin 8.1 g/dL (11.7-16.6); Lymphocytes # 0.6 10^3/uL (0.8-4.8); Lymphocytes % 11.9 %; Mean Corpuscular HGB Conc 30.2 g/dL (30.0-36.0); Mean Corpuscular Hemoglobin 31.9 pg (28.0-34.0); Mean Corpuscular Volume 105.5 fl (80-94); Mean Platelet Volume 9.2 fL (7.4-10.4); Monocytes # 0.4 10^3/uL (0.2-0.9); Monocytes % 9.2 %; Neutrophils # 3.62 10^3/uL (1.8-7.7); Nucleated Red Blood Cells % 0 %; Platelet Count 220 10^3/cmm (130-400); Red Blood Count 2.54 10^6/uL (4.1-5.3); Red Cell Distribution Width 17.8 % (12.1-15.1); White Blood Count 4.8 10^3/uL (4.0-10.0)
[2021-10-30 11:45] LABS: Erythrocyte Sedimentation Rate 8 mm/hr (0-10)
[2021-10-30 11:59] LABS: Alanine Aminotransferase 8 U/L (0-41); Albumin Level 4.1 g/dL (3.5-5.2); Alkaline Phosphatase 97 IU/L (40-130); Aspartate Amino Transferase 12 U/L (0-40); Globulin 2.9 g/dL (1.3-4.6); Glomerular Filtration Rate 43.2 mL/min (90-130); Total Bilirubin 0.2 mg/dL (0.15-1.2)
[2021-10-30 12:54] VITALS: BP 102/66; PULSE 80; RESP 18; TEMP 36.2; O2SAT 99
== END 2021-10-30 11:00 | disposition home or self-care (01) ==
PROVIDERS: PCP Family Medicine; Referring Provider Internal Medicine Rheumatology; Visit Provider Internal Medicine Medical Oncology
DX: D50.9 Iron deficiency anemia, unspecified (principal); M45.0 Ankylosing spondylitis of multiple sites in spine; Z79.899 Other long term (current) drug therapy
CPT/HCPCS: 80076; 82565; 85025; 85651; 96365; 96375; J1200; J1602; J7050

== ENCOUNTER 2021-11-15 05:58 | Day surgery (SDC) | payer MEDICARE, OTHER, SELFPAY ==
[2021-11-14 10:45] VITALS: BMI 31.7
[2021-11-15] MEDS: sodium chloride 0.9% 1,000 ML 30 ML IV (06:28)
[2021-11-15 06:32] VITALS: BP 121/94; PULSE 137; RESP 18; TEMP 36.1; O2SAT 95
--- NOTE | 2021-11-15 06:40 | P.HP_ITS ---
Same Day Surgery H&P Indication for Procedure/HPI DATE OF PROCEDURE: November 15, 2021 CHIEF COMPLAINT/INDICATIONFOR SURGICAL PROCEDURE: Change in Bowel habits and abdominal pain PREOP DIAGNOSIS: Postprandial pain and change in bowel habits PLANNED PROCEDURE: Operation Date: 11/15/21 07:00 Proposed Procedures p EGD 74776/colonscopy 78740/change in bowel habit R19.4/epigastric pain R10.13(Not Applicable) - John Reno MD s Colonoscopy(Not Applicable) - John Reno MD 09/17/2021 This is a pleasant 66 years old gentleman with complicated surgical history, comes today escorted by his daughter as he did undergo an open heart surgery towards the end of 2020 and after surgery per his description started to encounter poor appetite and postprandial pain.? It is mostly located in the upper abdomen associated with change in bowel habits alternating between nonbloody diarrhea and constipation.? Patient had an ultrasound of the gallbladder at an outside facility and was told to have gallbladder stones.? He was seen by another surgeon and was told he does not need his gallbladder out and he does not think that this is responsible for his symptoms. Patient seems to be miserable and according to his daughter she always encourage him to have protein shakes but he is not interested.? Also she does report to me that her dad had 14 surgeries of both hips 10 and 4.? As he has poor bone healing potential. Patient is referred to me for further evaluation and potential management.? Also patient had a previous colonoscopy 10 years ago and was reported as normal. The ultrasound gallbladder report was retrieved from the outside facility and showed the gallbladder revealed stones with sludge.? No biliary ductal dilation is seen.? Visualized portions of the liver reveals fatty infiltration.? The pancreas spleen and kidneys reveal no acute process.? A 4.6 cm left renal cyst is seen. Impression Fatty liver.? Cholelithiasis. 11/15/2021 Patient comes today for diagnostic EGD and colonoscopy.Mesenteric duplex still pending ROS All systems have been reviewed negative except as per the above note per problem list Medications/Allergies* Home Medications Medication Instructions Recorded Confirmed Type Vitamin D2 50,000 unit PO Q7D 12/08/20 11/15/21 History Vitamin D3 5,000 unit PO DAILY 12/08/20 11/15/21 History cholestyramine-aspartame 4 gram 4 g PO DAILY 12/08/20 11/15/21 History oral powder for susp in a packet (Prevalite) ascorbate calcium (vitamin C) 500 500 mg PO DAILY 02/19/21 11/15/21 History mg tablet atorvastatin 80 mg tablet 80 mg PO DAILY 09/17/21 11/15/21 History clopidogrel 75 mg tablet 75 mg PO DAILY 09/17/21 11/15/21 History cyclobenzaprine 10 mg tablet 10 mg PO TID 09/17/21 11/15/21 History furosemide 20 mg tablet (Lasix) 10 mg PO QAM 09/17/21 11/15/21 History lisinopril 10 mg tablet 10 mg PO DAILY 09/17/21 11/15/21 History metoclopramide HCl 5 mg tablet 5 mg PO DAILY 09/17/21 11/15/21 History (Reglan) metoprolol tartrate 100 mg tablet 100 mg PO BID 09/17/21 11/15/21 History spironolactone 25 mg tablet 25 mg PO DAILY 09/17/21 11/15/21 History sulfamethoxazole 800 1 tab PO BID 09/17/21 11/15/21 History mg-trimethoprim 160 mg tablet (Bactrim DS) gabapentin 300 mg capsule 600 mg PO TID 11/15/21 11/15/21 History Allergies/Adverse Reactions Allergy/AdvReac Type Severity Reaction Status Date / Time infliximab-abda Allergy Unknown Verified 11/15/21 06:43 [From Renflexis] Current Medications: 3 Generic Name Dose Route Start Last Admin Trade Name Freq PRN Reason Stop Dose Admin Sodium Chloride 1,000 mls @ 30 mls/hr 11/15/21 06:15 11/15/21 06:28 Sodium Chloride 0.9% IV 30 mls/hr .Q24H EMANUEL Administration Pertinent History/Comorbid Conditions* Medical History (Updated 09/19/21 @ 17:18 by John Reno MD) Ankylosing spondylitis Bilateral sacroiliitis Encounter for screening for other viral diseases GERD (gastroesophageal reflux disease) High risk medication use History of CVA (cerebrovascular accident) HLA B27 (HLA B27 positive) Hypertension Immunization counseling Inflammatory arthritis Stroke Umbilical hernia Surgical History (Updated 12/08/20 @ 17:50 by Matt Jasso DO) History of hip replacement bilateral with mult surg and screws etc S/P hip replacement Family History (Updated 12/30/19 @ 10:57 by Kandi Castillo LPN) Rheumatoid arthritis Diabetes CAD (coronary artery disease) Hypertension Stroke Denies family history of Lupus Cancer Social History Smoking and tobacco status: never smoked Alcohol intake: never History of recent travel: No Pertinent Exam Findings alert, oriented x 3, regular rate & rhythm and procedure specific exam findings (Abdominal examination nontender nondistended soft) Recommendations Surgery/Procedure today (Diagnostic EGD and colonoscopy) Coding Level of Care Code Acute Animal Geneticist for Luis Meek
--- NOTE | 2021-11-15 06:55 | P.ANESASSM_ITS ---
Pre-Anesthetic Assessment Height/Weight: Height 1.75 m Weight 97.522 kg Temp Pulse Resp BP Pulse Ox 97.0 F L 137 H 18 121/94 95 11/15/21 06:32 11/15/21 06:32 11/15/21 06:32 11/15/21 06:32 11/15/21 06:32 Preop Diagnosis: Postprandial pain and change in bowel habits Operation Date: 11/15/21 07:00 Proposed Procedures p EGD 09662/colonscopy 84625/change in bowel habit R19.4/epigastric pain R10.13(Not Applicable) - John Reno MD s Colonoscopy(Not Applicable) - John Reno MD Familial anesthetic complications: none Was Beta Latisha taken within 24 hours: Yes Was Clonidine taken within 24 hours: N/A Last intake: Intake Last Liquid Date 11/14/21 Last Liquid Time 22:00 Last Solid Date 11/13/21 Last Intake: 22:00 Social No alcohol and No tobacco Exam alert, oriented x 3, clear to auscultation bilaterally and regular rate & rhythm Airway Submandibular: within normal limits Cervical ROM: within normal limits Mallampati: Class II Dentition: false Pulmonary Exertional Dyspnea, Sleep Apnea and Shortness of Breath CV/HEM Coronary Artery Disease (CABG 6months ago, slow recovery) and Hypertension None reported Hepatic None reported GI Gastroesophageal Reflux Disease Metabolic Morbid Obesity Musc/skel Lower Back Pain and Osteoarthritis/DJD Neuropsych Cerebrovascular Accident (right side weakness, 90% resolved) Anesthetic Plan ASA status: 3 Anesthesia: MAC Risk of > 500 ml blood loss (7ml/kg in children): No Medications/Allergies Home Medications Medication Instructions Recorded Confirmed Last Taken Type Vitamin D2 50,000 unit PO Q7D 12/08/20 11/15/21 11/15/21 06:00 History Vitamin D3 5,000 unit PO DAILY 12/08/20 11/15/21 11/15/21 06:00 History cholestyramine-aspartame 4 gram 4 g PO DAILY 12/08/20 11/15/21 11/14/21 History oral powder for susp in a packet (Prevalite) diclofenac sodium 75 mg 75 mg PO Q12H PRN #60 tab 01/09/21 11/15/21 11/15/21 06 :00 Rx tablet,delayed release ascorbate calcium (vitamin C) 500 500 mg PO DAILY 02/19/21 11/15/21 11/15/21 06:00 History mg tablet leflunomide 20 mg tablet 20 mg PO DAILY #90 tab 02/19/21 11/15/21 11/15/21 06:00 Rx pantoprazole 40 mg tablet,delayed 40 mg PO DAILY #90 tab 02/19/21 11/14/21 Unknown Rx release atorvastatin 80 mg tablet 80 mg PO DAILY 09/17/21 11/15/21 11/15/21 06:00 History clopidogrel 75 mg tablet 75 mg PO DAILY 09/17/21 11/15/21 11/09/21 History cyclobenzaprine 10 mg tablet 10 mg PO TID 09/17/21 11/15/21 11/15/21 06:00 History furosemide 20 mg tablet (Lasix) 10 mg PO QAM 09/17/21 11/15/21 11/15/21 06:00 History lisinopril 10 mg tablet 10 mg PO DAILY 09/17/21 11/15/21 11/15/21 06:00 History metoclopramide HCl 5 mg tablet 5 mg PO DAILY 09/17/21 11/15/21 11/15/21 06:00 History (Reglan) metoprolol tartrate 100 mg tablet 100 mg PO BID 09/17/21 11/15/21 11/15/21 06:00 History spironolactone 25 mg tablet 25 mg PO DAILY 09/17/21 11/15/21 11/15/21 06:00 History sulfamethoxazole 800 1 tab PO BID 09/17/21 11/15/21 11/15/21 06:00 History mg-trimethoprim 160 mg tablet (Bactrim DS) gabapentin 300 mg capsule 600 mg PO TID 11/15/21 11/15/21 11/15/21 06:00 History Allergies Allergy/AdvReac Type Severity Reaction Status Date / Time infliximab-abda Allergy Unknown Verified 11/15/21 06:43 [From Renflexis] Current Medications Generic Name Dose Route Start Last Admin Trade Name Freq PRN Reason Stop Dose Admin Sodium Chloride 1,000 mls @ 30 mls/hr 11/15/21 06:15 11/15/21 06:28 Sodium Chloride 0.9% IV 30 mls/hr .Q24H EMANUEL Administration PFSH Anesthesia Medical History Ankylosing spondylitis Bilateral sacroiliitis Encounter for screening for other viral diseases GERD (gastroesophageal reflux disease) High risk medication use History of CVA (cerebrovascular accident) HLA B27 (HLA B27 positive) Hypertension Immunization counseling Inflammatory arthritis Stroke Umbilical hernia Surgical History History of hip replacement bilateral with mult surg and screws etc S/P hip replacement Family History Other CAD (coronary artery disease) Diabetes Hypertension Rheumatoid arthritis Stroke Denies family history of Lupus Cancer Social History Smoking and tobacco status: never smoked Alcohol intake: never History of recent travel: No Data Anesthesia Cardiac Studies: Echocardiogram 04/17/21 Sestamibi Stress Test (Cardiology) 04/17/21
[2021-11-15 07:31] VITALS: BP 96/74; PULSE 119; RESP 20; TEMP 36.1; O2SAT 93
--- NOTE | 2021-11-15 13:13 | ANE.PACU2 ---
Inpatient post-anesthesia follow up: Airway intact: Yes Vital signs: Temperature 97.0 F Pulse Rate 119 Respiratory Rate 20 Blood Pressure 96/74 Pulse Oximetry 93 Oxygen Delivery Me thod Nasal Cannula Oxygen Flow Rate 3 Fraction of Inspir ed Oxygen Hydration adequate: Yes Nausea and vomiting: No Pain level: 2 Mental status: Baseline
== END 2021-11-15 07:58 | disposition home or self-care (01) ==
PROVIDERS: PCP Family Medicine; Visit Provider Surgery
PROC: 0DJ08ZZ Inspection of Upper Intestinal Tract, Via Natural or Artificial Opening Endoscopic (ICD-10-PCS; CPT 43235; principal; 2021-11-15 07:00)
PROC: 0DJD8ZZ Inspection of Lower Intestinal Tract, Via Natural or Artificial Opening Endoscopic (ICD-10-PCS; CPT 45378; 2021-11-15 07:00)
DX: R19.4 Change in bowel habit (principal); R10.13 Epigastric pain; K21.9 Gastro-esophageal reflux disease without esophagitis; Z86.73 Personal history of transient ischemic attack (TIA), and cerebral infarction without residual deficits; K21.00 Gastro-esophageal reflux disease with esophagitis, without bleeding; K44.9 Diaphragmatic hernia without obstruction or gangrene; G47.30 Sleep apnea, unspecified; Z95.1 Presence of aortocoronary bypass graft; I10 Essential (primary) hypertension; E66.01 Morbid (severe) obesity due to excess calories; Z68.31 Body mass index [BMI] 31.0-31.9, adult; M19.90 Unspecified osteoarthritis, unspecified site
CPT/HCPCS: 43235; 45378; J2704; J7030

== ENCOUNTER 2021-11-22 15:19 | Outpatient (CLI) | payer MEDICARE, OTHER, SELFPAY ==
--- NOTE | 2021-11-22 15:44 | XR_ITS ---
WS: [id number] Exam: XR hip RT 2-3V wo/w pel* [id number] Date/Time of Exam: 11/22/2021 3:45 PM Reason For Exam: PAIN IN RIGHT HIP Compared to previous study 10/17/2020. Total hip replacement is noted on the right. There is significant medial protrusion of the acetabular cup into the pelvis. There is a fracture of the right superior pubic ramus which is nondisplaced. Th ere also appears to be a fracture of the lateral aspect of the right ischium. The total right hip pro sthesis is otherwise intact. Plate and screw fixation of the right pelvis apparently secondary to pre vious pelvic fracture. Left total hip replacement partially visualized. XR/XR hip RT 2-3V wo/w pel* [id number] IMPRESSION: 1. Total hip replacement on the right. There are fractures of the right superio r pubic ramus and also the right ischium with medial protrusion of the acetabul ar cup into the pelvis. The appearance is unstable. 2. Partially visualized left total hip replacement. Old fractures of the pelvis .
== END 2021-11-22 15:20 | disposition home or self-care (01) ==
PROVIDERS: PCP Family Medicine; Visit Provider Family Medicine
DX: S32.511A Fracture of superior rim of right pubis, initial encounter for closed fracture (principal); S32.601A Unspecified fracture of right ischium, initial encounter for closed fracture; X58.XXXA Exposure to other specified factors, initial encounter; Z96.643 Presence of artificial hip joint, bilateral
CPT/HCPCS: 73502

== ENCOUNTER 2021-11-26 11:53 | Outpatient (CLI) | payer MEDICARE, OTHER, SELFPAY ==
--- NOTE | 2021-11-26 12:00 | USCV_ITS ---
Jay Mota Age: 66 Gender: M : 1955 Exam Date: 11/26/2021 12:05 Ordering Phys: John Reno MD Technologist: ALFRED [place] [facility] [place]: Unspecified abdominal pain Type of Exam: Mesenteric Artery 8oz Ounces Of Ensure Time of Ingestion: 1220 Minutes Post-Prandial: 20 Pre-Prandial Post-Prandial SUPERIOR MESENTERIC ARTERY Aorta @ SMA: 51.5 cm/s 80.5 cm/s Celiac Artery: 191 cm/s 215 cm/s Hepatic Artery: 122 cm/s 159 cm/s Splenic Artery: 212 cm/s 124 cm/s SMA Prox 250 cm/s 320 cm/s SMA Mid: 242 cm/s 282 cm/s SMA Distal: 167 cm/s 249 cm/s NESTOR Prox: 199 cm/s 124 cm/s Findings: No pt complaints of pain during exam. There is a significant drop in the postprandial velocity in the splenic artery. The postprandial velocity elevation in the mid SMA was found to be less than 20% of the resting velocity There is a significant drop in the postprandial velocity in the inferior mesenteric artery Conclusions Significant drop in the postprandial velocities in the splenic and inferior mesenteric arteries suggesting hemodynamically significant stenosis. Less than optimal velocity elevation in the mid superior mesenteric artery also may suggest hemodynamically significant stenosis. Consider mesenteric angiogram to better evaluate these arteries, if clinically indicated. No similar previous studies are available for comparison Dr Abiel Yo MD [facility] (Electronically Signed) Final Date: 02 Dec 2021 20:13 S
== END 2021-11-26 11:54 | disposition home or self-care (01) ==
LOC: RAD 11:54
PROVIDERS: PCP Family Medicine; Visit Provider Surgery
DX: R10.13 Epigastric pain (principal); R10.9 Unspecified abdominal pain
CPT/HCPCS: 93975

== ENCOUNTER 2021-11-28 11:30 | Outpatient (CLI) | payer MEDICARE, OTHER, SELFPAY ==
[2021-11-28 12:04] LABS: Basophils % 0.4 %; Eosinophils # 0.1 10^3/uL (0.0-0.8); Eosinophils % 1.2 %; Hematocrit 30.7 % (42.0-52.0); Hemoglobin 9.5 g/dL (11.7-16.6); Lymphocytes # 0.6 10^3/uL (0.8-4.8); Lymphocytes % 8.7 %; Mean Corpuscular HGB Conc 30.9 g/dL (30.0-36.0); Mean Corpuscular Hemoglobin 32.5 pg (28.0-34.0); Mean Corpuscular Volume 105.1 fl (80-94); Monocytes # 0.5 10^3/uL (0.2-0.9); Monocytes % 7.6 %; Neutrophils # 5.46 10^3/uL (1.8-7.7); Neutrophils % 81.5 %; Nucleated Red Blood Cells % 0 %; Platelet Count 280 10^3/cmm (130-400); Red Blood Count 2.92 10^6/uL (4.1-5.3); White Blood Count 6.7 10^3/uL (4.0-10.0)
--- NOTE | 2021-11-28 13:56 | ONC CON_ITS ---
Dr. Franco New Patient Note Patient: Jay Mota Unit #: [id number]: 1955 Dicatated By: Nona Franco M.D.Date of Visit: Nov 28, 2021 Onc MED New Patient/Consult Referring Physician: Dr. Ermelinda Montana M.D. History of Present Illness: Mr. Jay Mota, he is a 66-year-old gentleman with history of ankylosing spondylitis, status post multiple bilateral hip replacement, in total 14, coronary artery disease, CVA, was initially found to be anemic after his hip replacement done in August 2019, as per patient he was started on oral iron, since then he has been taking it without any problem, never required blood transfusion, denies any melena or hematochezia, denies any hemoptysis or hematemesis, denies any jaundice denies any urine or stool color changes, as per patient prior to his last hip replacement, he was somewhat active but now mostly wheelchair-bound and denies any night sweats, denies any peripheral lymphadenopathy denies any abdominal fullness, denies any recurrent fever, denies any shortness of breath or palpitation at rest.Denies any peripheral numbness Patient denies smoking or alcohol use Past Medical History: Mr. Mota's medical history consists of ankylosing spondylitis, coronary artery disease, gastroesophageal reflux disease, hearing loss, hypertension, stroke, and vitamin D deficiency. Past Surgical History: Mr. Mota's surgical/procedural history consists of bilateral hip replacement, coronary artery bypass, and Covid positive in 2020. Medications: Aspirin Adult Low Dose 1 Tablet (of 81 mg) Tablet, enteric coated Oral daily, Atorvastatin Calcium 1 Tablet (of 80 mg) Oral daily, Bactrim DS 1 Tablet (of 800-160 mg) Oral at bedtime, Clopidogrel Bisulfate 1 Tablet (of 75 mg) Oral daily, Cyclobenzaprine HCl 1 Tablet (of 10 mg) Oral t.i.d. PRN, Ferrous Sulfate 1 Tablet (of 325 (65 fe) mg) Oral daily, Furosemide 1 Tablet (of 40 mg) Oral daily, Gabapentin 1 Capsule (of 300 mg) Oral t.i.d., HYDROcodone-Acetaminophen 1 Tablet (of 7.5-325 mg) Oral q 6 hours PRN, Leflunomide 1 Tablet (of 20 mg) Oral daily, Lisinopril 1 Tablet (of 10 mg) Oral daily, Metoclopramide HCl 1 Tablet (of 5 mg) Oral four times a day, Metoprolol Succinate ER 1 Tablet (of 100 mg) Tablet SR 24 HR Oral daily, Pantoprazole Sodium 1 Tablet (of 40 mg) Tablet, enteric coated Oral b.i.d., Spironolactone 1 Tablet (of 25 mg) Oral daily, Tylenol 1 Capsule (of 325 mg) Oral t.i.d. Allergies: pfizer covid vaccine Social History: Mr. Mota is . Mr. Mota has never smoked. He has no history of drinking. Family History: There is no documented family history. Review Of Symptoms: Review of Systems is not available for this patient. Vital Signs: Performed on Nov 28, 2021 12:48: 7, 6, 31.01 (HIGH), 2.11 sq.m, 69 in, 95 % (LOW), 101 /min (HIGH), 16 /min, 108/78 mm(hg), 97.4 F (LOW), and 210 lbs (HIGH). Performance Status: 3 - Capable of only limited self-care, confined to bed or chair more than 50% of waking hours. (ECOG) Physical Examination: ENMT - No mouth sores, no thrush, no jaundice, Respiratory - Lungs are clear to auscultation, Cardiovascular - Regular rate and rhythm of heart, Abdomen - Soft, bowel sounds present, Extremities - No visible edema. Lab/Imaging: Most recent lab results are not available for this patient. Impression: Macrocytic anemia, etiology probably multifactorial including anemia of chronic disease,e.g ankylosing spondylitis, nutritional e.g. B12/folate deficiency or mineral deficiency like upper or zinc. Or due to medication interfering with erythropoiesis or considering his age underlying myelodysplasia cannot be ruled out or mild hemolysis Ankylosing spondylitis involving spine, being followed by roller skater Multiple bilateral hip replacement, in total 14 now with active right hip pain Coronary artery disease CVA Hypertension Vitamin D deficiency Plan: Discussed with patient regarding his labs white blood count 6.7 hemoglobin 9.5 g medical 30.7 platelets 280,000 MCV 105.1 with normal differential Clinically, patient has well compensated moderate, macrocytic anemia etiology could be multifactorial including nutritional like B12/folate/mineral deficiency, other possibility could be due to medications used for ankylosing spondylitis, interfering with erythropoiesis or anemia of chronic disease or considering his age underlying myelodysplasia cannot be ruled out or low-grade hemolysis At this point, will consider anemia work-up with iron studies, B12, folate level, red blood cell folate level, homocystine level, methylmalonic acid level, intrinsic factor antibodies, reticulocyte count, copper/zinc level, sed rate, TSH and LDH, haptoglobin level, direct and indirect Sky test. and Serum protein electrophoresis Patient said he has undergone EGD/colonoscopy about 2 weeks ago, it was unremarkable except some abnormality seen around his larynx for which he is being referred to ENT for evaluation otherwise it was unremarkable exam. We will obtain EGD/colonoscopy report and review Patient return to clinic in 2 weeks with CBC, CMP and if inconclusive, will consider bone marrow evaluation. Signed By: Nona Franco M.D. <<Signature on File>>
[2021-11-28 14:29] LABS: Erythrocyte Sedimentation Rate 42 mm/hr (0-10); Reticulocyte % 4.9 % (0.5-2.0)
[2021-11-28 15:11] LABS: Folate Level 4.5 ng/mL (4.5-32.2)
[2021-11-28 15:12] LABS: Ferritin 446 ng/mL (30-400); Homocysteine 15.01; Iron 49 ug/dL (59-158); Lactate Dehydrogenase 332 U/L (135-225); Percent Saturation 19.2 % (20-50); Thyroid Stimulating Hormone 1.74 uIU/mL (0.27-4.20); Total Iron Binding Capacity 255 mcg/dl; Unsaturated Iron Binding 206 ug/dL (112-347); Vitamin B12 398 pg/mL (232-1245)
[2021-12-01 14:42] LABS: Methylmalonic Acid 105 nmol/L (87-318)
[2021-12-02 19:48] LABS: Copper Level 123 mcg/dL (70-175)
[2021-12-02 19:52] LABS: Zinc Level, Serum or Plasma 64 mcg/dL (60-130)
== END 2021-11-28 11:31 | disposition home or self-care (01) ==
PROVIDERS: PCP Family Medicine; Visit Provider Internal Medicine Hematology & Oncology
DX: D53.9 Nutritional anemia, unspecified (principal); M45.9 Ankylosing spondylitis of unspecified sites in spine; Z96.643 Presence of artificial hip joint, bilateral; I25.10 Atherosclerotic heart disease of native coronary artery without angina pectoris; Z86.73 Personal history of transient ischemic attack (TIA), and cerebral infarction without residual deficits; I10 Essential (primary) hypertension; E55.9 Vitamin D deficiency, unspecified
CPT/HCPCS: 36415; 82525; 82607; 82728; 82746; 82747; 83010; 83090; 83540; 83550; 83615; 83921; 84443; 84630; 85025; 85045; 85651; 86340; 86880; 99204

== ENCOUNTER → 2021-11-29 15:35 | Outpatient (BNVA) | payer MEDICARE, OTHER, SELFPAY | PROVIDERS: PCP Family Medicine; Visit Provider Surgery | DX: Z09 Encounter for follow-up examination after completed treatment for conditions other than malignant neoplasm (principal) | CPT/HCPCS: 99212 ==

== ENCOUNTER 2021-12-25 09:59 | Outpatient (CLI) | payer MEDICARE, OTHER, SELFPAY ==
[2021-12-25 10:32] LABS: Basophils % 0.2 %; Eosinophils # 0.1 10^3/uL (0.0-0.8); Eosinophils % 0.7 %; Hematocrit 28.9 % (42.0-52.0); Hemoglobin 9.1 g/dL (11.7-16.6); Lymphocytes # 0.6 10^3/uL (0.8-4.8); Mean Corpuscular HGB Conc 31.5 g/dL (30.0-36.0); Mean Corpuscular Hemoglobin 31.3 pg (28.0-34.0); Mean Corpuscular Volume 99.3 fl (80-94); Mean Platelet Volume 9.1 fL (7.4-10.4); Monocytes # 0.7 10^3/uL (0.2-0.9); Monocytes % 8.3 %; Neutrophils # 7.04 10^3/uL (1.8-7.7); Neutrophils % 82.2 %; Nucleated Red Blood Cells % 0.2 %; Platelet Count 302 10^3/cmm (130-400); Red Blood Count 2.91 10^6/uL (4.1-5.3); Red Cell Distribution Width 14.7 % (12.1-15.1); White Blood Count 8.6 10^3/uL (4.0-10.0)
[2021-12-25] MEDS: sodium chloride 0.9% 250 ML 100 ML IV (10:40)
[2021-12-25] MEDS: diphenhydrAMINE 50 mg/mL SDV 1mL 25 MG IVP (10:41)
[2021-12-25] MEDS: acetaminophen 325 mg Tablet 650 MG PO (10:41)
[2021-12-25 10:47] LABS: Erythrocyte Sedimentation Rate 51 mm/hr (0-10)
[2021-12-25 10:52] LABS: Alanine Aminotransferase 7 U/L (0-41); Albumin Level 4.1 g/dL (3.5-5.2); Alkaline Phosphatase 98 IU/L (40-130); Aspartate Amino Transferase 11 U/L (0-40); Globulin 3.2 g/dL (1.3-4.6); Glomerular Filtration Rate 66.6 mL/min (90-130); Total Bilirubin 0.2 mg/dL (0.15-1.2); Total Protein 7.3 g/dL (6.6-8.7)
[2021-12-25 12:01] VITALS: BP 114/58; PULSE 75; RESP 16; TEMP 36.3; O2SAT 97
== END 2021-12-25 10:00 | disposition home or self-care (01) ==
PROVIDERS: PCP Family Medicine; Referring Provider Internal Medicine Rheumatology; Visit Provider Internal Medicine Rheumatology
DX: M45.0 Ankylosing spondylitis of multiple sites in spine (principal); Z79.899 Other long term (current) drug therapy; J38.7 Other diseases of larynx; Z71.1 Person with feared health complaint in whom no diagnosis is made
CPT/HCPCS: 31575; 80076; 82565; 85025; 85651; 96365; 96375; 99203; 99204; J1200; J1602; J7050

== ENCOUNTER 2021-12-27 13:01 | Oncology outpatient (recurring) (ONCR) | payer MEDICARE, OTHER, SELFPAY ==
[2021-12-12 13:37] LABS: Basophils # 0.1 10^3/uL (0.0-0.1); Basophils % 0.7 %; Eosinophils # 0.3 10^3/uL (0.0-0.8); Eosinophils % 3.8 %; Hematocrit 30.1 % (42.0-52.0); Hemoglobin 9.2 g/dL (11.7-16.6); Lymphocytes # 0.6 10^3/uL (0.8-4.8); Lymphocytes % 9.1 %; Mean Corpuscular HGB Conc 30.6 g/dL (30.0-36.0); Mean Corpuscular Hemoglobin 31.6 pg (28.0-34.0); Mean Corpuscular Volume 103.4 fl (80-94); Mean Platelet Volume 9.1 fL (7.4-10.4); Monocytes # 0.6 10^3/uL (0.2-0.9); Monocytes % 8.5 %; Neutrophils # 5.36 10^3/uL (1.8-7.7); Neutrophils % 77.5 %; Nucleated Red Blood Cells % 0 %; Platelet Count 309 10^3/cmm (130-400); Red Blood Count 2.91 10^6/uL (4.1-5.3); Red Cell Distribution Width 14.3 % (12.1-15.1); White Blood Count 6.9 10^3/uL (4.0-10.0)
[2021-12-12 14:04] LABS: Alanine Aminotransferase 6 U/L (0-41); Albumin Level 3.9 g/dL (3.5-5.2); Alkaline Phosphatase 120 IU/L (40-130); Anion Gap 16.2 (5-19); Aspartate Amino Transferase 12 U/L (0-40); Blood Urea Nitrogen 20 mg/dL (8-23); Calcium 9.2 mg/dL (8.5-10.5); Carbon Dioxide 24 mmol/L (22-29); Chloride 105 mmol/L (98-107); Globulin 3.6 g/dL (1.3-4.6); Glomerular Filtration Rate 50.4 mL/min (90-130); Glucose 122 mg/dL (65-115); Osmolality Calculated 294 mOsm/kg (285-295); Potassium 5.2 mmol/L (3.5-5.1); Sodium 140 mmol/L (136-145); Total Bilirubin 0.2 mg/dL (0.15-1.2); Total Protein 7.5 g/dL (6.6-8.7)
[2021-12-27 13:08] VITALS: BP 123/74; PULSE 76; RESP 18; TEMP 35.9; O2SAT 96
[2021-12-27] MEDS: ferric carboxy (IVPB) 750 MG in sodium chloride 0.9% (100 ml) 100 ML 345 MG IV (13:26)
[2021-12-27 14:08] VITALS: BP 110/63; PULSE 65; RESP 18; TEMP 36.7; O2SAT 98
== END 2022-01-01 23:59 | disposition home or self-care (01) ==
PROVIDERS: Internal Medicine Hematology & Oncology; PCP Family Medicine; Visit Provider Nurse Practitioner Family
DX: D50.9 Iron deficiency anemia, unspecified (principal); Z79.899 Other long term (current) drug therapy; D53.9 Nutritional anemia, unspecified
CPT/HCPCS: 80053; 85025; 96365; 99214; 99999; J1439

== ENCOUNTER 2022-01-03 13:20 | Oncology outpatient (recurring) (ONCR) | payer MEDICARE, OTHER, SELFPAY ==
[2022-01-03 13:42] VITALS: BP 118/73; PULSE 97; RESP 18; TEMP 36.3; O2SAT 95
[2022-01-03] MEDS: ferric carboxy (IVPB) 750 MG in sodium chloride 0.9% (100 ml) 100 ML 345 MG IV (13:55)
[2022-01-03 14:15] VITALS: BP 113/68; PULSE 90; RESP 18; TEMP 36.3; O2SAT 96
== END 2022-01-31 23:59 | disposition home or self-care (01) ==
PROVIDERS: PCP Family Medicine; Visit Provider Nurse Practitioner Family
DX: D50.9 Iron deficiency anemia, unspecified (principal); D53.9 Nutritional anemia, unspecified; Z79.899 Other long term (current) drug therapy
CPT/HCPCS: 96365; J1439

== ENCOUNTER 2022-01-07 14:00 | Outpatient (CLI) | payer MEDICARE, OTHER, SELFPAY | END 2022-01-07 14:01 | disposition home or self-care (01) | LOC: SLEEP 01-08 10:27 | PROVIDERS: PCP Family Medicine; Visit Provider Family Medicine | DX: G47.33 Obstructive sleep apnea (adult) (pediatric) (principal) | CPT/HCPCS: G0399 ==

== ENCOUNTER → 2022-01-22 12:41 | Outpatient (BNVA) | payer MEDICARE, OTHER, SELFPAY | PROVIDERS: PCP Family Medicine; Visit Provider Internal Medicine Rheumatology | DX: M45.0 Ankylosing spondylitis of multiple sites in spine (principal); M19.90 Unspecified osteoarthritis, unspecified site; Z15.89 Genetic susceptibility to other disease; M46.1 Sacroiliitis, not elsewhere classified; Z96.643 Presence of artificial hip joint, bilateral; Z71.89 Other specified counseling | CPT/HCPCS: 99214 ==

== ENCOUNTER 2022-02-08 08:35 | Oncology outpatient (recurring) (ONCR) | payer MEDICARE, OTHER, SELFPAY ==
[2022-02-08 09:13] LABS: Basophils % 0.6 %; Eosinophils # 0.1 10^3/uL (0.0-0.8); Eosinophils % 1.9 %; Hematocrit 29.2 % (42.0-52.0); Hemoglobin 8.8 g/dL (11.7-16.6); Lymphocytes # 0.7 10^3/uL (0.8-4.8); Lymphocytes % 10.1 %; Mean Corpuscular HGB Conc 30.1 g/dL (30.0-36.0); Mean Corpuscular Hemoglobin 30.2 pg (28.0-34.0); Mean Corpuscular Volume 100.3 fl (80-94); Mean Platelet Volume 9.6 fL (7.4-10.4); Monocytes # 0.4 10^3/uL (0.2-0.9); Neutrophils # 5.54 10^3/uL (1.8-7.7); Nucleated Red Blood Cells % 0 %; Platelet Count 266 10^3/cmm (130-400); Red Blood Count 2.91 10^6/uL (4.1-5.3); Red Cell Distribution Width 16.2 % (12.1-15.1)
[2022-02-08 09:33] LABS: Alanine Aminotransferase 8 U/L (0-41); Albumin Level 3.5 g/dL (3.5-5.2); Alkaline Phosphatase 124 IU/L (40-130); Blood Urea Nitrogen 44 mg/dL (8-23); Calcium 8.9 mg/dL (8.5-10.5); Carbon Dioxide 16 mmol/L (22-29); Chloride 105 mmol/L (98-107); Globulin 3.4 g/dL (1.3-4.6); Glomerular Filtration Rate 25.8 mL/min (90-130); Glucose 142 mg/dL (65-115); Iron 81 ug/dL (59-158); Osmolality Calculated 296 mOsm/kg (285-295); Sodium 136 mmol/L (136-145); Total Bilirubin 0.2 mg/dL (0.15-1.2); Total Protein 6.9 g/dL (6.6-8.7)
[2022-02-08 09:38] LABS: Anion Gap 19.7 (5-19); Aspartate Amino Transferase 14 U/L (0-40); Percent Saturation 36.4 % (20-50); Potassium 4.7 mmol/L (3.5-5.1); Total Iron Binding Capacity 222 mcg/dl; Unsaturated Iron Binding 141 ug/dL (112-347)
[2022-02-08 09:47] LABS: Ferritin 3154 ng/mL (30-400)
== END 2022-03-03 23:59 | disposition home or self-care (01) ==
PROVIDERS: PCP Family Medicine; Visit Provider Nurse Practitioner Family
DX: D50.9 Iron deficiency anemia, unspecified (principal)
CPT/HCPCS: 36415; 80053; 82728; 83540; 83550; 85025; 99214

== ENCOUNTER 2022-02-08 10:19 | Observation (INO) | payer MEDICARE, OTHER, SELFPAY ==
[2022-02-08] VITALS (7 sets, daily range): BP systolic 80–105; BP diastolic 57–62; PULSE 71–91; RESP 16–23; TEMP 36.6; O2SAT 92–95; BMI 32.6
--- NOTE | 2022-02-08 10:28 | XR_ITS ---
WS: [id number] Portable AP upright chest, 02/08/2022 Clinical Data: dyspnea/cough Comparison: Portable chest, 12/08/2020. Findings: No nodules, masses or effusions are seen. The heart is normal. The pulmonary vascularity is not increased. No pneumonia or pneumothorax is seen. Midline sternotomy sutures are seen. The descen ding thoracic aorta shows tortuosity. XR/XR chest 1V portable [id number] Impression: Atherosclerosis.
--- NOTE | 2022-02-08 10:28 | ECG_ITS ---
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 Measurements Intervals [place] Rate: 75 P: 23 DE: 187 QRS: -51 QRSD: 128 T: 48 QT: 371 QTc: 416 Interpretive Statements SINUS RHYTHM LEFT ANTERIOR FASCICULAR BLOCK [QRS AXIS <= -45, QR IN I, RS IN II] No previous ECG available for comparison Electronically Signed On 02-10-2022 23:40:43 CDT by William Suárez M.D. [id number]
--- NOTE | 2022-02-08 10:45 | PC.NURSE ---
PT PLACED ON CONTINUOUS NIBP, SPO2, AND CM
--- NOTE | 2022-02-08 10:45 | W.ED.GENADLT ---
HPI - General Adult General: Chief complaint: ER Hold Stated complaint: Low blood pressure, cough Time Seen by Provider: 02/08/22 10:27 Source: patient Mode of arrival: ambulatory Limitations: no limitations History of Present Illness: 58-year-old male with a history of anemia presents to the emergency room complaining of cough malaise hypotension. He was seen being seen this morning by his oncologist and noted to have a blood pressure of 76 systolic. He generally not been feeling well the last 2 days he had seen his primary care doctor they tested him for COVID which came back negative he had a mildly productive cough and they called in some Augmentin which she had not yet started Dr. Franco had done some lab work and his creatinine was elevated from a baseline of 1 to a creatinine of 2.5. Patient has a known history of coronary artery disease and previously had a bypass in May 2021. He is not having any chest pain now he is having a moderately productive cough. He denies any fever sweats or chills but has noted increasing shortness of breath and orthopnea. Onset (ago): day(s) (2) Severity: moderate Relieving factors: none Exacerbating factors: none Associated symptoms: Reports decreased appetite, malaise, nausea and weakness; Deny chest pain, confusion, cough, diaphoresis, dyspnea, fevers/chills, headache(s), rash, palpitations, seizures, short of breath, syncope or vomiting Treatments prior to arrival: none Review of Systems Const: Reports: fatigue and malaise; Denies: fever(s), chills or diaphoresis ENMT: Reports: nasal congestion; Denies: throat pain, ear or mastoid pain or nasal discharge Card: Denies: chest pain, palpitations or syncope Resp: Denies: dyspnea GI: Reports: nausea; Denies: vomiting : Denies: flank pain, dysuria, urinary frequency or urinary urgency Skin/Breast: Denies: rash Neuro: Denies: headache(s) or confusion PFSH ED PFSH: Medical History Ankylosing spondylitis Bilateral sacroiliitis Encounter for screening for other viral diseases GERD (gastroesophageal reflux disease) High risk medication use History of CVA (cerebrovascular accident) HLA B27 (HLA B27 positive) Hypertension Immunization counseling Inflammatory arthritis Stroke Umbilical hernia Surgical History History of heart bypass surgery History of hernia repair History of hip replacement bilateral with mult surg and screws etc History of hip replacement 07/2020 S/P hip replacement Family History Other CAD (coronary artery disease) Diabetes Hypertension Rheumatoid arthritis Stroke Denies family history of Lupus Clotting disorder Dementia Hyperlipidemia Psychiatric illness Chronic kidney disease (CKD) Suicide Anesthesia complication Bleeding disorder Lung disease Cancer Social History Smoking and tobacco status: never smoked Alcohol intake: never History of recent travel: No Physical Exam Const: COMMON NORMALS: no acute distress GENERAL APPEARANCE: cooperative and comfortable ORIENTATION/CONSCIOUSNESS: Yes awake, Yes oriented to person, Yes oriented to place and Yes oriented to time HENMT: COMMON NORMALS: normocephalic, atraumatic and hearing grossly normal bilaterally HEAD & SCALP: normocephalic and atraumatic Neck/C-Spine: COMMON NORMALS: no JVD Resp: COMMON NORMALS: normal respiratory effort, No retractions, No use of accessory muscles and clear to auscultation bilaterally AUSCULTATION: clear to auscultation bilaterally Cardio: COMMON NORMALS: no JVD, regular rate, regular rhythm and No murmurs present (Cardio) RATE: regular rate RHYTHM: regular rhythm GI: COMMON NORMALS: Soft to palpation and No hepatosplenomegaly present AUSCULTATION: Yes normoactive bowel sounds PALPATION: Yes Soft to palpation, No Tenderness to palpation present (GI), No Guarding due to palpation present (GI) and Yes No hepatosplenomegaly present Extremity: COMMON NORMALS: normal to inspection, capillary refill normal, no clubbing, cyanosis or edema, no calf tenderness and no pedal edema Neuro: SENSORIUM/ORIENTATION: Yes oriented to person, Yes oriented to place and Yes oriented to time Skin: COMMON NORMALS: no rashes or lesions noted GENERAL SKIN EXAM: no rashes or lesions noted Course Vital Signs: Vital signs: Vital Signs Temperature 98 F 02/08/22 10:32 Pulse Rate 88 02/09/22 08:09 Respiratory Rate 22 H 02/09/22 08:09 Blood Pressure 117/57 02/09/22 08:09 Pulse Oximetry 96 02/09/22 08:09 MDM - General Adult Medical Decision Making Acute kidney injury with hyperkalemia. IV fluids. Discussed with hospitalist orders written anemia at his baseline per discussion with Dr. Franco. Will need to be monitored after fluid hydration. Medical Records I reviewed the patient's medical records. Lab Data I reviewed the patient's lab results. : 02/09/22 05:50 02/09/22 05:50 Radiology Impressions Chest X-Ray 02/08/22 10:28 Impression: Atherosclerosis. Laboratory Results WBC 8.5 10^3/uL (4.0-10.0) 02/08/22 10:28 RBC 2.85 10^6/uL (4.1-5.3) L 02/08/22 10:28 Hgb 8.8 g/dL (11.7-16.6) L 02/08/22 10:28 Hct 28.4 % (42.0-52.0) L 02/08/22 10:28 MCV 99.6 fl (80-94) H 02/08/22 10:28 MCH 30.9 pg (28.0-34.0) 02/08/22 10:28 MCHC 31.0 g/dL (30.0-36.0) 02/08/22 10:28 RDW 16.3 % (12.1-15.1) H 02/08/22 10:28 Plt Count 281 10^3/cmm (130-400) 02/08/22 10:28 MPV 9.6 fL (7.4-10.4) 02/08/22 10:28 Neut % (Auto) 78.8 % 02/08/22 10:28 Lymph % (Auto) 9.0 % 02/08/22 10:28 [facility] % (Auto) 8.4 % 02/08/22 10:28 Eos % (Auto) 1.3 % 02/08/22 10:28 Baso % (Auto) 0.4 % 02/08/22 10:28 Neut # (Auto) 6.69 10^3/uL (1.8-7.7) 02/08/22 10:28 Lymph # (Auto) 0.8 10^3/uL (0.8-4.8) 02/08/22 10:28 [facility] # (Auto) 0.7 10^3/uL (0.2-0.9) 02/08/22 10:28 Eos # (Auto) 0.1 10^3/uL (0.0-0.8) 02/08/22 10:28 Baso # (Auto) 0.0 10^3/uL (0.0-0.1) 02/08/22 10:28 Nucleated RBC % (auto) 0 % 02/08/22 10:28 Nucleated RBCs # 0.0 /100WBC 02/08/22 10:28 Sodium 134 mmol/L (136-145) L 02/08/22 11:10 Potassium 5.8 mmol/L (3.5-5.1) H 02/08/22 11:10 Chloride 106 mmol/L (98-107) 02/08/22 11:10 Carbon Dioxide 13 mmol/L (22-29) L 02/08/22 11:10 Anion Gap 20.8 (5-19) H 02/08/22 11:10 BUN 44 mg/dL (8-23) H 02/08/22 11:10 Creatinine 2.5 mg/dL (0.7-1.2) H 02/08/22 11:10 GFR Calculation 25.8 mL/min (90-130) L 02/08/22 11:10 Glucose 92 mg/dL (65-115) 02/08/22 11:10 Calculated Osmolality 289 mOsm/kg (285-295) 02/08/22 11:10 Calcium 8.4 mg/dL (8.5-10.5) L 02/08/22 11:10 Total Bilirubin 0.2 mg/dL (0.15-1.2) 02/08/22 11:10 AST 18 U/L (0-40) 02/08/22 11:10 ALT 8 U/L (0-41) 02/08/22 11:10 Alkaline Phosphatase 125 IU/L (40-130) 02/08/22 11:10 NT-Pro-B Natriuret Pep 42 pg/mL (0-125) 02/08/22 11:10 Total Protein 7.2 g/dL (6.6-8.7) 02/08/22 11:10 Albumin 3.0 g/dL (3.5-5.2) L 02/08/22 11:10 Globulin 4.2 g/dL (1.3-4.6) 02/08/22 11:10 Discharge Plan Discharge Patient Disposition: Placed in Observation Admit Provider: Silverio Simpson Clinical Impression: Acute kidney injury superimposed on CKD, Hyperkalemia, Anemia Coding Level of Care Code ED [employer] for Luis Meek
[2022-02-08] MEDS: sodium chloride 0.9% 1,000 ML 999 ML IV ×2 (11:06→12:33)
--- NOTE | 2022-02-08 11:19 | PC.NURSE ---
AUSCULTATED LUNG SOUNDS: PT HAS BILATERAL WHEEZING AND CRACKLES THROUGHOUT.
[2022-02-08 11:26] LABS: Basophils % 0.4 %; Eosinophils # 0.1 10^3/uL (0.0-0.8); Eosinophils % 1.3 %; Hematocrit 28.4 % (42.0-52.0); Hemoglobin 8.8 g/dL (11.7-16.6); Lymphocytes # 0.8 10^3/uL (0.8-4.8); Mean Corpuscular Hemoglobin 30.9 pg (28.0-34.0); Mean Corpuscular Volume 99.6 fl (80-94); Mean Platelet Volume 9.6 fL (7.4-10.4); Monocytes # 0.7 10^3/uL (0.2-0.9); Monocytes % 8.4 %; Neutrophils # 6.69 10^3/uL (1.8-7.7); Neutrophils % 78.8 %; Nucleated Red Blood Cells % 0 %; Platelet Count 281 10^3/cmm (130-400); Red Blood Count 2.85 10^6/uL (4.1-5.3); Red Cell Distribution Width 16.3 % (12.1-15.1); White Blood Count 8.5 10^3/uL (4.0-10.0)
[2022-02-08 12:01] LABS: Alkaline Phosphatase 125 IU/L (40-130); Blood Urea Nitrogen 44 mg/dL (8-23); Calcium 8.4 mg/dL (8.5-10.5); Carbon Dioxide 13 mmol/L (22-29); Chloride 106 mmol/L (98-107); Globulin 4.2 g/dL (1.3-4.6); Glomerular Filtration Rate 25.8 mL/min (90-130); Glucose 92 mg/dL (65-115); NT Pro B Type Natriuretic Pept 42 pg/mL (0-125); Osmolality Calculated 289 mOsm/kg (285-295); Sodium 134 mmol/L (136-145); Total Bilirubin 0.2 mg/dL (0.15-1.2); Total Protein 7.2 g/dL (6.6-8.7)
[2022-02-08 12:07] LABS: Anion Gap 20.8 (5-19)
[2022-02-08 12:08] LABS: Alanine Aminotransferase 8 U/L (0-41); Aspartate Amino Transferase 18 U/L (0-40); Potassium 5.8 mmol/L (3.5-5.1)
[2022-02-08] MEDS: cyclobenzaprine 10 mg Tablet 5 MG PO (12:32)
[2022-02-08] MEDS: acetaminophen 1,000 MG/100 ML PIGGYBACK 400 MG IV (12:32)
--- NOTE | 2022-02-08 13:29 | PM.HP ---
Providers/Chief Complaint Primary Care Provider: Ermelinda Montana MD Chief Complaint: Low blood pressure, cough History of Present Illness Jay Mota is a 66 year old male with PMH of HTN, CAD S/P CABG, CVA, anemia, S/P Multiple B/L Hip replacement was at his oncologist office today for anemia follow up he was sent to the ER from there as he was found to be hypotensive, currently he is complaining of generalized weakness, fatigue,poor oral intake, cough with whitish sputum,symptoms are present for a week time. He denies any chest pain, sob, vomiting, headache. Upon arrival in the ER he was worked up for above mention complain. Pertinent imaging studies: Xray chest : No acute findings Pertinent Labs : WBC : 8.5 H&H : 8.8/28 ,PLT : 281 , Na: 134, k:5.8 BUN/SCR : 44/2.5 , HCO3: 15, A , RBS:92 , AST,ALT,ALP:Normal Patient was found to be hypotensine in ER and was given 2Ls normal saline. Review of Systems General: Reports: 10 or more systems reviewed and unremarkable except in HPI and below Const: Denies: fever(s), chills, body aches, change in appetite or diaphoresis Card: Denies: palpitations, edema, swelling of feet/ankles or orthopnea Resp: Reports: productive cough; Denies: dyspnea, wheezing or pain on inspiration GI: Reports: nausea; Denies: abdominal pain, vomiting, diarrhea or constipation : Denies: flank pain or difficulty urinating Musc: Denies: back pain, extremity pain or extremity swelling Neuro: Denies: headache(s) or confusion Medications/Allergies Home Medications Medication Instructions Recorded Confirmed Last Taken Type diclofenac sodium 75 mg 75 mg PO Q12H PRN #60 tab 01/09/21 02/08/22 11/15/21 06:00 Rx tablet,delayed release atorvastatin 80 mg tablet 80 mg PO DAILY 09/17/21 02/08/22 02/08/22 History clopidogrel 75 mg tablet 75 mg PO DAILY 09/17/21 02/08/22 02/08/22 History cyclobenzaprine 10 mg tablet 10 mg PO TID 09/17/21 02/08/22 11/15/21 06:00 History furosemide 20 mg tablet (Lasix) 20 mg PO QAM 09/17/21 02/08/22 02/08/22 History lisinopril 10 mg tablet 10 mg PO DAILY 09/17/21 02/08/22 02/08/22 History spironolactone 25 mg tablet 25 mg PO DAILY 09/17/21 02/08/22 02/08/22 History gabapentin 300 mg capsule 600 mg PO TID 11/15/21 02/08/22 02/08/22 History abatacept 125 mg/mL subcutaneous 125 mg SUBCUT .Q7days #4 ml 01/22/22 02/08/22 Unknown Rx syringe (Orencia) hydrocodone 7.5 mg-acetaminophen 1 tab PO Q8H PRN 01/22/22 02/08/22 Unknown History 325 mg tablet leflunomide 20 mg tablet 20 mg PO DAILY #90 tab 01/22/22 02/08/22 02/08/22 Rx metoclopramide HCl 5 mg tablet 5 mg PO TID tab 01/22/22 02/08/22 02/08/22 History (Reglan) metoprolol tartrate 100 mg tablet 50 mg PO DAILY tab 01/22/22 02/08/22 02/08/22 History pantoprazole 40 mg tablet,delayed 40 mg PO BID tab 01/22/22 02/08/22 02/08/22 History release sulfamethoxazole 800 1 tab PO DAILY tab 01/22/22 02/08/22 02/08/22 History mg-trimethoprim 160 mg tablet (Bactrim DS) Allergies Allergy/AdvReac Type Severity Reaction Status Date / Time infliximab-abda Allergy Unknown Verified 02/08/22 11:31 [From Renflexis] PFSH Acute PFSH: Medical History Ankylosing spondylitis Bilateral sacroiliitis Encounter for screening for other viral diseases GERD (gastroesophageal reflux disease) High risk medication use History of CVA (cerebrovascular accident) HLA B27 (HLA B27 positive) Hypertension Immunization counseling Inflammatory arthritis Stroke Umbilical hernia Surgical History History of heart bypass surgery History of hernia repair History of hip replacement bilateral with mult surg and screws etc History of hip replacement 07/2020 S/P hip replacement Family History Other CAD (coronary artery disease) Diabetes Hypertension Rheumatoid arthritis Stroke Denies family history of Lupus Clotting disorder Dementia Hyperlipidemia Psychiatric illness Chronic kidney disease (CKD) Suicide Anesthesia complication Bleeding disorder Lung disease Cancer Social History Smoking and tobacco status: never smoked Alcohol intake: never History of recent travel: No Vitals/I&O/Wt Last Vital Signs Temp 98 F 02/08/22 10:32 Pulse 83 02/08/22 11:15 Resp 17 02/08/22 11:15 BP 88/57 02/08/22 11:15 Pulse Ox 93 02/08/22 11:15 02/07/22 02/08/22 02/08/22 22:59 06:59 14:59 Intake Total 1000 / 1000 Balance 1000 / 1000 Weight last 48 hrs Weight 97.522 kg Physical Exam Const: COMMON NORMALS: patient oriented x3 HENMT: COMMON NORMALS: normocephalic and atraumatic HEAD & SCALP: normocephalic and atraumatic Chest: CHEST: Yes Symmetrical chest wall rise Resp: COMMON NORMALS: clear to auscultation bilaterally EFFORT & INSPECTION: Yes symmetric chest movement AUSCULTATION: clear to auscultation bilaterally Cardio: COMMON NORMALS: regular rate, regular rhythm, S1 normal heart sound present, S2 normal heart sound present, No gallops present (Cardio), No murmurs present (Cardio), No rub (Cardio) and Peripheral pulses 2+ throughout RATE: regular rate RHYTHM: regular rhythm HEART SOUNDS: S1 normal heart sound present and S2 normal heart sound present PERIPHERAL PULSES: Peripheral pulses 2+ throughout GI: COMMON NORMALS: Normal to inspection, nondistended, normoactive bowel sounds present, Soft to palpation, non-tender, No hepatosplenomegaly present and no masses AUSCULTATION: Yes normoactive bowel sounds PALPATION: Yes Soft to palpation and Yes No hepatosplenomegaly present RECTAL EXAM: Yes deferred Extremity: NARRATIVE EXTREMITY EXAM: 1 + B/L PITTING EDEMA IN BOTH LOWER EXTREMITY Neuro: COMMON NORMALS: patient oriented x3 Data : 02/08/22 10:28 02/08/22 11:10 Micro: Microbiology 02/08/22 11:40 Blood Culture - Preliminary Blood SPECIMEN COLLECTED A&P Assessment and plan (1) Anemia: Status: Acute (2) Acute kidney injury superimposed on CKD: Status: Acute (3) Hyperkalemia: Status: Acute (4) Bronchitis: Status: Acute Plan 66 year old male with PMH of HTN, CAD S/P CABG, CVA, anemia, S/P Multiple B/L Hip replacement was at his oncologist office today for anemia follow up he was sent to the ER from there as he was found to be hypotensive, currently he is complaining of generalized weakness, fatigue,poor oral intake, cough with whitish sputum,symptoms are present for a week time. Assessment : HARSH ON CKD likely pre renal HARSH Hyperkalemia Bronchitis Dehydration Anemia CAD S/P CABG CVA Plan : Follow Blood Culture Lactic acid Procalcitonin Continue Azithromycin Continue Gental I.V Hydration Monitor BMP Avoid Nephrotoxics Monitor Intake /output charting Monitor Serum K, have received hyperkalemia cocktail Patient is due for bone marrow Biopsy as outpatient for Anemia work up. DVT PPX: On heparin Code Status :Full code Attestations Medical Necessity Statement*: Patient needs to be in hospital for the management of HARSH, hyperkalemia. Time Spent in Patient Care: Greater than 35 minutes (>than 50% of time spent in counselling and/or direct pt care on unit). Coding Level of Care Code Acute Warp Tying Machine Knotter for g Fwd Exam Detailed Diagnoses Anemia D64.9 Acute kidney injury superimposed on CKD N17.9; N18.9 Hyperkalemia E87.5 Bronchitis J40
[2022-02-08] MEDS: dextrose 50% syringe 50 mL 25 ML IVP (14:04)
[2022-02-08] MEDS: azithromycin 500 MG in sodium chloride 0.9% 250 ML 250 MG IV (14:04)
[2022-02-08] MEDS: heparin 5,000 unit/mL INJ 1 mL 5000 UNIT SUBCUT (14:05)
[2022-02-08] MEDS: insulin regular-human 100 units/1 mL 5 UNIT IVP (14:08)
[2022-02-08] MEDS: cyclobenzaprine 10 mg Tablet PO ×2 (15:18→19:39)
[2022-02-08] MEDS: metoclopramide 10 mg Tablet 5 MG PO (15:18)
[2022-02-08] MEDS: sodium chloride 0.9% 1,000 ML 75 ML IV (15:19)
[2022-02-08 15:52] LABS: Urine Color Yellow (Yellow)
[2022-02-08 15:53] LABS: Add Urine Microscopic? YES; Bilirubin Urine 1+ (Negative); Blood Urine 2+ (Negative); Glucose Urine UA Norm (Normal); Ketones Urine Negative (Negative); Leukocyte Esterase Urine Negative (Negative); Nitrate Urine Negative (Negative); Protein Urine Neg (Negative); Specific Gravity, Urine 1.015 (1.005-1.030); Urine Appearance Clear (CLEAR); Urobilinogen Urine Norm (Negative); pH Urine 5 (5-7)
[2022-02-08 16:23] LABS: Add Urine Culture? No; Squamous Epithelial Cell Urine 0-4 /hpf (0-5)
[2022-02-08] MEDS: gabapentin 300 mg Capsule 600 MG PO (17:19)
[2022-02-08] MEDS: acetaminophen 325 mg Tablet 650 MG PO (20:41)
--- NOTE | 2022-02-08 22:52 | PC.NURSE ---
EKG done at 2250 and shown to ER doctor
[2022-02-09] VITALS (8 sets, daily range): BP systolic 94–118; BP diastolic 57–65; PULSE 68–96; RESP 16–25; TEMP 36.3–36.4; O2SAT 93–97
[2022-02-09] MEDS: heparin 5,000 unit/mL INJ 1 mL 5000 UNIT SUBCUT (02:44)
[2022-02-09] MEDS: acetaminophen 325 mg Tablet 650 MG PO (02:45)
--- NOTE | 2022-02-09 02:52 | PC.NURSE ---
Patient not given 2100 Flexiril due to MD approval of 1930 dose for patient.
[2022-02-09] MEDS: cyclobenzaprine 10 mg Tablet PO ×2 (02:55→09:59)
[2022-02-09 05:59] LABS: Basophils % 0.4 %; Eosinophils # 0.1 10^3/uL (0.0-0.8); Eosinophils % 1.1 %; Lymphocytes # 0.7 10^3/uL (0.8-4.8); Lymphocytes % 12.9 %; Mean Corpuscular HGB Conc 30.4 g/dL (30.0-36.0); Mean Corpuscular Hemoglobin 30.8 pg (28.0-34.0); Mean Corpuscular Volume 101.3 fl (80-94); Mean Platelet Volume 9.6 fL (7.4-10.4); Monocytes # 0.4 10^3/uL (0.2-0.9); Monocytes % 7.9 %; Neutrophils # 4.02 10^3/uL (1.8-7.7); Neutrophils % 73.8 %; Nucleated Red Blood Cells % 0 %; Platelet Count 210 10^3/cmm (130-400); Red Blood Count 2.27 10^6/uL (4.1-5.3); Red Cell Distribution Width 16.3 % (12.1-15.1); White Blood Count 5.4 10^3/uL (4.0-10.0)
[2022-02-09 06:20] LABS: Anion Gap 14.1 (5-19); Blood Urea Nitrogen 30 mg/dL (8-23); Calcium 8.6 mg/dL (8.5-10.5); Carbon Dioxide 18 mmol/L (22-29); Chloride 110 mmol/L (98-107); Glomerular Filtration Rate 46.5 mL/min (90-130); Glucose 90 mg/dL (65-115); Magnesium 1.5 mg/dL (1.7-2.3); Osmolality Calculated 290 mOsm/kg (285-295); Potassium 5.1 mmol/L (3.5-5.1); Sodium 137 mmol/L (136-145)
[2022-02-09 06:29] LABS: Procalcitonin 0.09 ng/mL (0-0.5)
[2022-02-09] MEDS: HYDROcodone-acetaminophen 7.5-325 mg Tablet 1 TAB PO (09:58)
[2022-02-09] MEDS: metoclopramide 10 mg Tablet 5 MG PO (09:58)
[2022-02-09] MEDS: atorvastatin 40 mg Tablet 80 MG PO (09:59)
[2022-02-09] MEDS: clopidogrel 75 mg Tablet PO (09:59)
[2022-02-09] MEDS: gabapentin 300 mg Capsule 600 MG PO (09:59)
--- NOTE | 2022-02-09 10:54 | P.DS_ITS ---
Discharge Providers Date of Admission: 02/08/22 13:17 Date of Discharge: February 09, 2022 Attending Provider at Admission: Silverio Simpson MD Attending Provider at Discharge: Silverio Simpson MD Primary Care Provider: Ermelinda Montana MD Diagnoses at Discharge Discharge Diagnosis (1) Anemia: Status: Acute (2) Acute kidney injury superimposed on CKD: Status: Acute (3) Hyperkalemia: Status: Acute (4) Bronchitis: Status: Acute Reason for Visit Reason for Visit: Low blood pressure, cough Hospital Course Hospital Course HPI Jay Mota is a 66 year old male with PMH of HTN, CAD S/P CABG, CVA, anemia, S/P Multiple B/L Hip replacement was at his oncologist office today for anemia follow up he was sent to the ER from there as he was found to be hypotensive, currently he is complaining of generalized weakness, fatigue,poor oral intake, cough with whitish sputum,symptoms are present for a week time. He denies any chest pain, sob, vomiting, headache. Upon arrival in the ER he was worked up for above mention complain. Pertinent imaging studies: Xray chest : No acute findings Pertinent Labs : WBC : 8.5 H&H : 8.8/28 ,PLT : 281 , Na: 134, k:5.8 BUN/SCR : 44/2.5 , HCO3: 15, A , RBS:92 , AST,ALT,ALP:Normal Patient was found to be hypotensine in ER and was given 2Ls normal saline. Hospital course: Patient was admitted for management of HARSH ON CKD likely pre renal HARSH , Hyperkalemia Bronchitis, dehydration?, Anemia. He was kept on IV hydration , intake output charting was monitored, BMP was monitored, nephrotoxic's were avoided, at the time of discharge his serum creatinine was improving, lisinopril has been kept on hold, Bactrim has been kept on hold, Lasix has been kept on hold, he will follow with repeat BMP in 1 w elem With his primary care physician, and at that point in time decision regarding resuming these medicines can be taken. Patient was also managed for acute bronchitis, currently he is on azithromycin and is being discharged on p.o. azithromycin for 5 days. For his hyperkalemia: Received hyperkalemia cocktail in the ER Serum potassium was normal at the time of discharge. Patient is due for bone marrow biopsy as outpatient for anemia work-up, contusion from Bactrim could be a possibility, as it is known to have bone marrow suppression effect, and he has been on Bactrim for a long time. Patient overall has responded well to above medical management and is being discharged in stable condition to home he will continue to follow with his primary care physician as an outpatient. Physical Exam Const: COMMON NORMALS: patient oriented x3 HENMT: COMMON NORMALS: normocephalic and atraumatic HEAD & SCALP: normocephalic and atraumatic Chest: CHEST: Yes Symmetrical chest wall rise Resp: COMMON NORMALS: clear to auscultation bilaterally EFFORT & INSPECTION: Yes symmetric chest movement AUSCULTATION: clear to auscultation bilaterally Cardio: COMMON NORMALS: regular rate, regular rhythm, S1 normal heart sound present, S2 normal heart sound present, No gallops present (Cardio), No murmurs present (Cardio), No rub (Cardio) and Peripheral pulses 2+ throughout RATE: regular rate RHYTHM: regular rhythm HEART SOUNDS: S1 normal heart sound present and S2 normal heart sound present PERIPHERAL PULSES: Peripheral pulses 2+ throughout GI: COMMON NORMALS: Normal to inspection, nondistended, normoactive bowel sounds present, Soft to palpation, non-tender, No hepatosplenomegaly present and no masses AUSCULTATION: Yes normoactive bowel sounds PALPATION: Yes Soft to palpation and Yes No hepatosplenomegaly present RECTAL EXAM: Yes deferred Extremity: NARRATIVE EXTREMITY EXAM: 1 + B/L PITTING EDEMA IN BOTH LOWER EXTREMITY Neuro: COMMON NORMALS: patient oriented x3 Discharge Data Studies Completed and Pending Completed Studies During Hospitalization Category Date Time Status XR chest 1V portable [id number] Stat Exams 02/08/22 10:28 Completed Pending at discharge Category Date Time Status Basic Metabolic Panel AM LABS Lab 02/10/22 04:00 Ordered Basic Metabolic Panel AM LABS Lab 02/11/22 04:00 Ordered Blood Culture Stat Lab 02/08/22 11:10 Results Complete Blood Count w/Auto AM LABS Lab 02/10/22 04:00 Ordered Complete Blood Count w/Auto AM LABS Lab 02/11/22 04:00 Ordered Radiology Impressions Chest X-Ray 02/08/22 10:28 Impression: Atherosclerosis. Laboratory Results WBC 5.4 10^3/uL (4.0-10.0) 02/09/22 05:50 RBC 2.27 10^6/uL (4.1-5.3) L 02/09/22 05:50 Hgb 7.0 g/dL (11.7-16.6) L 02/09/22 05:50 Hct 23.0 % (42.0-52.0) L 02/09/22 05:50 MCV 101.3 fl (80-94) H 02/09/22 05:50 MCH 30.8 pg (28.0-34.0) 02/09/22 05:50 MCHC 30.4 g/dL (30.0-36.0) 02/09/22 05:50 RDW 16.3 % (12.1-15.1) H 02/09/22 05:50 Plt Count 210 10^3/cmm (130-400) 02/09/22 05:50 MPV 9.6 fL (7.4-10.4) 02/09/22 05:50 Neut % (Auto) 73.8 % 02/09/22 05:50 Lymph % (Auto) 12.9 % 02/09/22 05:50 [facility] % (Auto) 7.9 % 02/09/22 05:50 Eos % (Auto) 1.1 % 02/09/22 05:50 Baso % (Auto) 0.4 % 02/09/22 05:50 Neut # (Auto) 4.02 10^3/uL (1.8-7.7) 02/09/22 05:50 Lymph # (Auto) 0.7 10^3/uL (0.8-4.8) L 02/09/22 05:50 [facility] # (Auto) 0.4 10^3/uL (0.2-0.9) 02/09/22 05:50 Eos # (Auto) 0.1 10^3/uL (0.0-0.8) 02/09/22 05:50 Baso # (Auto) 0.0 10^3/uL (0.0-0.1) 02/09/22 05:50 Nucleated RBC % (auto) 0 % 02/09/22 05:50 Nucleated RBCs # 0.0 /100WBC 02/09/22 05:50 Sodium 137 mmol/L (136-145) 02/09/22 05:50 Potassium 5.1 mmol/L (3.5-5.1) 02/09/22 05:50 Chloride 110 mmol/L (98-107) H 02/09/22 05:50 Carbon Dioxide 18 mmol/L (22-29) L 02/09/22 05:50 Anion Gap 14.1 (5-19) 02/09/22 05:50 BUN 30 mg/dL (8-23) H 02/09/22 05:50 Creatinine 1.5 mg/dL (0.7-1.2) H 02/09/22 05:50 GFR Calculation 46.5 mL/min (90-130) L 02/09/22 05:50 Glucose 90 mg/dL (65-115) 02/09/22 05:50 Calculated Osmolality 290 mOsm/kg (285-295) 02/09/22 05:50 Lactate 1.0 mmol/L (0.5-2.2) 02/09/22 07:20 Calcium 8.6 mg/dL (8.5-10.5) 02/09/22 05:50 Magnesium 1.5 mg/dL (1.7-2.3) L 02/09/22 05:50 Magnesium Cancelled 02/09/22 05:50 Total Bilirubin 0.2 mg/dL (0.15-1.2) 02/08/22 11:10 AST 18 U/L (0-40) 02/08/22 11:10 ALT 8 U/L (0-41) 02/08/22 11:10 Alkaline Phosphatase 125 IU/L (40-130) 02/08/22 11:10 NT-Pro-B Natriuret Pep 42 pg/mL (0-125) 02/08/22 11:10 Total Protein 7.2 g/dL (6.6-8.7) 02/08/22 11:10 Albumin 3.0 g/dL (3.5-5.2) L 02/08/22 11:10 Globulin 4.2 g/dL (1.3-4.6) 02/08/22 11:10 Procalcitonin 0.09 ng/mL (0-0.5) 02/09/22 05:50 Urine Color Yellow (Yellow) 02/08/22 15:26 Urine Appearance Clear (CLEAR) 02/08/22 15:26 Urine pH 5 (5-7) 02/08/22 15:26 Ur Specific [place] 1.015 (1.005-1.030) 02/08/22 15:26 Urine Protein Neg (Negative) 02/08/22 15:26 Urine Glucose (UA) Norm (Normal) 02/08/22 15:26 Urine Ketones Negative (Negative) 02/08/22 15:26 Urine Blood 2+ (Negative) H 02/08/22 15:26 Urine Nitrate Negative (Negative) 02/08/22 15:26 Urine Bilirubin 1+ (Negative) H 02/08/22 15:26 Urine Urobilinogen Norm mg/dL (Negative) 02/08/22 15:26 Ur Leukocyte Esterase Negative (Negative) 02/08/22 15:26 Urine RBC 5-10 /hpf (0-2) H 02/08/22 15:26 Urine WBC None /hpf (0-5) 02/08/22 15:26 Ur Squamous Epith Cells 0-4 /hpf (0-5) H 02/08/22 15:26 Amorphous Sediment Not Reportable 02/08/22 15:26 Urine Bacteria None /hpf (NONE) 02/08/22 15:26 Vitals Last Vital Signs Temp 97.3 F L 02/09/22 08:00 Pulse 79 02/09/22 08:34 Resp 18 02/09/22 08:34 BP 117/57 02/09/22 08:09 Pulse Ox 95 02/09/22 08:34 Discharge Plan Discharge Patient Disposition: Home Condition: Stable Prescriptions: New azithromycin 500 mg tablet 500 mg PO DAILY 5 Days Qty: 5 0RF Continued clopidogrel 75 mg tablet 75 mg PO DAILY 0RF atorvastatin 80 mg tablet 80 mg PO DAILY 0RF cyclobenzaprine 10 mg tablet 10 mg PO TID 0RF metoclopramide HCl [Reglan] 5 mg tablet 5 mg PO TID 0RF hydrocodone-acetaminophen 7.5-325 mg tablet 1 tab PO Q8H PRN (Reason: Pain) 0RF pantoprazole 40 mg tablet,delayed release (DR/EC) 40 mg PO BID 0RF Orencia 125 mg/mL syringe 125 mg SUBCUT .Q7days Qty: 4 3RF leflunomide 20 mg tablet 20 mg PO DAILY Qty: 90 0RF diclofenac sodium 75 mg tablet,delayed release (DR/EC) 75 mg PO Q12H PRN (Reason: moderate to severe pain) Qty: 60 0RF gabapentin 300 mg capsule 600 mg PO TID 0RF Held lisinopril 10 mg tablet 10 mg PO DAILY 0RF Hold Instructions: Resume on 02/16/22. furosemide [Lasix] 20 mg tablet 20 mg PO QAM 0RF Hold Instructions: Resume on 02/16/22. spironolactone 25 mg tablet 25 mg PO DAILY 0RF Hold Instructions: Resume on 02/12/22. metoprolol tartrate 100 mg tablet 50 mg PO DAILY 0RF Hold Instructions: Resume on 02/12/22. sulfamethoxazole-trimethoprim [Bactrim DS] 800-160 mg tablet 1 tab PO DAILY 0RF Hold Instructions: Resume on 02/23/22. Discharge Orders: Discharge Order (Routine); Ordered 02/09/22 Ordered By: Silverio Simpson Other Ambulatory Orders: Basic Metabolic Panel (Routine) Timeframe: 1 Week Facility: [facility] - Location: Lab - Main Lab Ordered By: Silverio Simpson Referrals: Ermelinda Montana MD [Primary Care Provider] - (Please call Friday to schedule a follow up appointment. ) Patient Instructions: Bronchitis (Acute) - Adult, Azithromycin (By mouth), Acute Kidney Injury (DC), Opioid Safety Discharge Attestations Time Spent in Discharge Care*: greater than 30 min Quality Metrics Clinical Quality Measures [ No reported AMI, CVA or VTE this stay] Coding Level of Care Code Acute Chg FW DC note Diagnoses Anemia D64.9 Acute kidney injury superimposed on CKD N17.9; N18.9 Hyperkalemia E87.5 Bronchitis J40
== END 2022-02-09 15:51 | disposition home or self-care (01) ==
LOC: ER 13:51 → ER IP 17:19 → MEDSURG 02-09 01:45
PROVIDERS: Admitting Provider Internal Medicine; Emergency Provider Family Medicine; PCP Family Medicine; Visit Provider Internal Medicine
DX: D64.9 Anemia, unspecified (principal); N17.9 Acute kidney failure, unspecified; I12.9 Hypertensive chronic kidney disease with stage 1 through stage 4 chronic kidney disease, or unspecified chronic kidney disease; N18.9 Chronic kidney disease, unspecified; E87.5 Hyperkalemia; J40 Bronchitis, not specified as acute or chronic; I25.10 Atherosclerotic heart disease of native coronary artery without angina pectoris; Z95.1 Presence of aortocoronary bypass graft; K21.9 Gastro-esophageal reflux disease without esophagitis; Z86.73 Personal history of transient ischemic attack (TIA), and cerebral infarction without residual deficits; D50.9 Iron deficiency anemia, unspecified
CPT/HCPCS: 36415; 71045; 80048; 80053; 81001; 82728; 83540; 83550; 83605; 83735; 83880; 84145; 85025; 87040; 93005; 96361; 96372; 96374; 96375; 99214; 99285; G0378; J0456; J1644; J1815; J7030; J7050; J8597

== ENCOUNTER → 2022-05-15 12:40 | Outpatient (BNVA) | payer MEDICARE, OTHER, SELFPAY | PROVIDERS: PCP Family Medicine; Visit Provider Internal Medicine Rheumatology | DX: Z79.899 Other long term (current) drug therapy (principal); M45.0 Ankylosing spondylitis of multiple sites in spine; Z15.89 Genetic susceptibility to other disease; M46.1 Sacroiliitis, not elsewhere classified; Z71.89 Other specified counseling; Z96.643 Presence of artificial hip joint, bilateral | CPT/HCPCS: 36415; 80076; 82565; 85025; 86140; 99214 ==

== ENCOUNTER → 2022-10-22 11:44 | Outpatient (BNVA) | payer MEDICARE, OTHER, MEDICAID, SELFPAY | PROVIDERS: PCP Family Medicine; Visit Provider Internal Medicine Rheumatology | DX: M45.9 Ankylosing spondylitis of unspecified sites in spine (principal); Z79.899 Other long term (current) drug therapy; Z15.89 Genetic susceptibility to other disease; M45.0 Ankylosing spondylitis of multiple sites in spine; M46.1 Sacroiliitis, not elsewhere classified; Z71.89 Other specified counseling | CPT/HCPCS: 36415; 73562; 80076; 82565; 85025; 86140; 99214 ==

== ENCOUNTER 2023-01-25 13:46 | Emergency (ER) | payer MEDICARE, OTHER, MEDICAID, SELFPAY ==
[2023-01-25 14:00] VITALS: BP 99/64; PULSE 74; RESP 16; TEMP 37; O2SAT 95; BMI 32.6
--- NOTE | 2023-01-25 16:02 | ED_ITS ---
HPI - Wound/Laceration General: Chief Complaint: Wound/Laceration Stated Complaint: open wound rt hip Time Seen by Provider: 01/25/23 16:02 History of Present Illness: 67-year-old gentleman presenting to the emergency department for evaluation of hip wound. He is unsure how long wound has been there however noticed it this morning with some drainage. He has had multiple hip surgeries. Denies signs of systemic illness. No other specific changes in health, exacerbating, or estephanie viating factors identified. Upon clarification of surgical history patient last had successful drainage of fluid collection in [place] likely in 2020. He has not had operative management though has had follow-up with Dr. Washington at [facility]. Onset (ago): unknown Extremity Location: Right: hip Patient tetanus UTD: Yes Associated symptoms: Reports pain; Denies chills, fever(s), inability to move, nausea or vomiting Review of Systems General: Reports: 10 or more systems reviewed and unremarkable except in HPI and below Const: Denies: fever(s) or chills GI: Denies: nausea or vomiting PFSH ED PFSH: Medical History Acute kidney injury superimposed on CKD Anemia Ankylosing spondylitis Bilateral sacroiliitis Bronchitis Encounter for screening for other viral diseases GERD (gastroesophageal reflux disease) High risk medication use History of CVA (cerebrovascular accident) HLA B27 (HLA B27 positive) Hyperkalemia Hypertension Immunization counseling Inflammatory arthritis Stroke Umbilical hernia Surgical History History of heart bypass surgery History of hernia repair History of hip replacement bilateral with mult surg and screws etc History of hip replacement 07/2020 S/P hip replacement Family History Other CAD (coronary artery disease) Diabetes Hypertension Rheumatoid arthritis Stroke Denies family history of Lupus Clotting disorder Dementia Hyperlipidemia Psychiatric illness Chronic kidney disease (CKD) Suicide Anesthesia complication Bleeding disorder Lung disease Cancer Social History Smoking and tobacco status: never smoked Alcohol intake: never Physical Exam Const: COMMON NORMALS: alert GENERAL APPEARANCE: cooperative and well developed HENMT: COMMON NORMALS: normocephalic and atraumatic HEAD & SCALP: normocephalic and atraumatic THROAT: posterior oropharynx normal Eye: COMMON NORMALS: conjunctivae normal CONJUNCTIVA: Yes conjunctivae normal SCLERA: sclerae normal Neck/C-Spine: COMMON NORMALS: supple GENERAL: Yes trachea midline Resp: COMMON NORMALS: clear to auscultation bilaterally EFFORT & INSPECTION: Yes able to speak in complete sentences AUSCULTATION: clear to auscultation bilaterally Cardio: COMMON NORMALS: regular rate and regular rhythm RATE: regular rate RHYTHM: regular rhythm GI: COMMON NORMALS: Soft to palpation PALPATION: Yes Soft to palpation and No Tenderness to palpation present (GI) Back/Pelvis: OTHER: Right hip lateral with approximately 1.5-2 roughly circular area of ulceration with underlying fascial layer exposed. Tenderness and warmth. No drainage. Appears to be on prior surgical scar line. CMS intact. Extremity: GENERAL: Yes normal exam except as noted and No edema Neuro: COMMON NORMALS: moves all extremities SENSORIUM/ORIENTATION: Yes alert and No Orientation impaired Psych: COMMON NORMALS: mental status grossly normal and Normal thought process present THOUGHT PROCESS: Normal thought process present Course Vital Signs: Vital signs: Vital Signs Temperature 98.6 F 01/25/23 14:00 Pulse Rate 89 01/25/23 18:41 Respiratory Rate 18 01/25/23 18:41 Blood Pressure 125/73 01/25/23 18:41 Pulse Oximetry 95 01/25/23 18:41 Oxygen Delivery Me thod Room Air 01/25/23 14:00 MDM - Wound/Laceration Medical Decision Making 67-year-old gentleman with complex history presenting with open wound. Exam as above. Patient is nontoxic. Warmth with adjacent edema. Labs notable for no leukocytosis, baseline anemia, normal platelet count. Metabolic panel without significant electrolyte derangement. Mildly elevated inflammatory markers. Ultrasound reveals large fluid collection that requires further characterization with CT for further management. CT demonstrates heterogeneous fluid collection surrounding the right total hip replacement enlarged compared to prior study consistent with abscess. There are also findings concerning for osteomyelitis. Discussed with orthopedics at our facility and patient exceeds our capability. Discussed with orthopedics on-call at [facility] in [place]. Given that patient is not septic he is appropriate for outpatient follow-up. Dressing placed and case discussed. He will be placed on antibiotics. The results of ED evaluation were discussed with the patient including prescriptions and/or symptomatic cares (if applicable) including appropriate and responsible use, followup plan, and return precautions. The patient verbalized understanding and felt safe for discharge. Medical Records I reviewed the patient's medical records. Lab Data I reviewed the patient's lab results. 01/25/23 18:03 01/25/23 18:03 Radiology Impressions Soft Tissue Ultrasound 01/25/23 16:08 IMPRESSION: There is a 22.6 x 18.4 cm heterogeneous collection in the soft tissues. Differential includes abscess and hematoma. Hip CT 01/25/23 17:39 IMPRESSION: Heterogeneous fluid collections surrounds the right total hip replacement enlarged when compared to the prior study, consistent with abscess formation. There is cortical irregularity of the adjacent right superior and inferior pubic rami raising concern for osteomyelitis. ADDENDUM: 01/25/23 1192 CRITICAL RESULT: The study was personally discussed on the telephone with Shekhar Gonzalez on 01/25/2023 6:58 PM CDT. The results were understood and acknowledged. Laboratory Results WBC 7.4 10^3/uL (4.0-10.0) 01/25/23 18:03 RBC 3.78 10^6/uL (4.1-5.3) L 01/25/23 18:03 Hgb 10.5 g/dL (11.7-16.6) L 01/25/23 18:03 Hct 35.1 % (42.0-52.0) L 01/25/23 18:03 MCV 92.9 fl (80-94) 01/25/23 18:03 MCH 27.8 pg (28.0-34.0) L 01/25/23 18:03 MCHC 29.9 g/dL (30.0-36.0) L 01/25/23 18:03 RDW 16.1 % (12.1-15.1) H 01/25/23 18:03 Plt Count 238 10^3/cmm (130-400) 01/25/23 18:03 MPV 9.0 fL (7.4-10.4) 01/25/23 18:03 Neut % (Auto) 79.7 % 01/25/23 18:03 Lymph % (Auto) 8.3 % 01/25/23 18:03 [place] % (Auto) 8.1 % 01/25/23 18:03 Eos % (Auto) 3.2 % 01/25/23 18:03 Baso % (Auto) 0.3 % 01/25/23 18:03 Neut # (Auto) 5.92 10^3/uL (1.8-7.7) 01/25/23 18:03 Lymph # (Auto) 0.6 10^3/uL (0.8-4.8) L 01/25/23 18:03 [place] # (Auto) 0.6 10^3/uL (0.2-0.9) 01/25/23 18:03 Eos # (Auto) 0.2 10^3/uL (0.0-0.8) 01/25/23 18:03 Baso # (Auto) 0.0 10^3/uL (0.0-0.1) 01/25/23 18:03 Nucleated RBC % (auto) 0 % 01/25/23 18:03 Nucleated RBCs # 0.0 /100WBC 01/25/23 18:03 ESR 26 mm/hr (0-10) H 01/25/23 18:03 Sodium 142 mmol/L (136-145) 01/25/23 18:03 Potassium 4.0 mmol/L (3.5-5.1) 01/25/23 18:03 Chloride 103 mmol/L (98-107) 01/25/23 18:03 Carbon Dioxide 28 mmol/L (22-29) 01/25/23 18:03 Anion Gap 15.0 (5-19) 01/25/23 18:03 BUN 20 mg/dL (8-23) 01/25/23 18:03 Creatinine 0.9 mg/dL (0.7-1.2) 01/25/23 18:03 GFR Calculation 83.7 mL/min (90-130) L 01/25/23 18:03 Glucose 87 mg/dL (65-115) 01/25/23 18:03 Calculated Osmolality 296 mOsm/kg (285-295) H 01/25/23 18:03 Calcium 9.1 mg/dL (8.5-10.5) 01/25/23 18:03 C-Reactive Protein 16.6 mg/L (0.0-4.9) H 01/25/23 18:03 Discharge Plan Discharge Patient Disposition: Home Clinical Impression: Open wound of skin, Abscess Condition: Stable Prescriptions: No Action lisinopril 10 mg tablet 10 mg PO DAILY Hold Instructions: Resume on 02/16/22. furosemide [Lasix] 20 mg tablet 20 mg PO QAM Hold Instructions: Resume on 02/16/22. spironolactone 25 mg tablet 25 mg PO DAILY Hold Instructions: Resume on 02/12/22. clopidogrel 75 mg tablet 75 mg PO DAILY atorvastatin 80 mg tablet 80 mg PO DAILY cyclobenzaprine 10 mg tablet 10 mg PO TID metoclopramide HCl [Reglan] 5 mg tablet 5 mg PO TID metoprolol tartrate 100 mg tablet 50 mg PO DAILY Hold Instructions: Resume on 02/12/22. sulfamethoxazole-trimethoprim [Bactrim DS] 800-160 mg tablet 1 tab PO DAILY Hold Instructions: Resume on 02/23/22. hydrocodone-acetaminophen 7.5-325 mg tablet 1 tab PO Q8H PRN (Reason: Pain) pantoprazole 40 mg tablet,delayed release (DR/EC) 40 mg PO BID Enbrel 50 mg/mL (1 mL) syringe 50 mg SUBCUT Q7D Qty: 4 3RF leflunomide 20 mg tablet 20 mg PO DAILY Qty: 90 0RF diclofenac sodium 75 mg tablet,delayed release (DR/EC) 75 mg PO Q12H PRN (Reason: moderate to severe pain) Qty: 60 0RF prednisone 10 mg tablet 10 mg PO DAILY PRN (Reason: for flares) Qty: 30 1RF gabapentin 300 mg capsule 600 mg PO TID Discharge Orders: Discharge ED (Routine); Ordered 01/25/23 Ordered By: Shekhar Kay Referrals: Ermelinda Montana MD [Primary Care Provider] - Discharge Diet: Usual diet Discharge Activity: Limit activity as instructed Patient Instructions: Abscess (ED) Activity Restrictions/Additional Instructions: Thank you for visiting the emergency department. You were seen and evaluated for skin wound. The most likely cause of your wound is related to infection secondary to abscess. Please follow-up with Dr. Washington. Keep the area clean and dry. I will prescribe antibiotics. Return to an emergency department for fevers, unwell feeling, or anything else that you are concerned about and feel needs emergency department evaluation. Coding Level of Care Code ED Customer Training Specialist for Luis Meek
--- NOTE | 2023-01-25 16:08 | USR_ITS ---
PROCEDURE INFORMATION: Exam: US Right Non-Vascular Joint or Other Extremity Structure Exam date and time: 01/25/2023 4:52 PM Age: 67 years old Clinical indication: Swelling; Hip; Right; Additional info: R lateral hip region wound, eval fluid collection/tracking TECHNIQUE: Imaging protocol: Right US joint or other nonvascular extremity structure or structures. Real-time ultrasound with image documentation. Limited study. Exam focused on the lower extremity in the region of clinical interest. COMPARISON: CR XR knee RT 3V* [id number] 10/22/2022 1:45 PM FINDINGS: Soft tissues: Heterogeneous collection measures 18.4 x 22.6 cm in the soft tissues in the region of the right hip. US/US soft tissue/extremity [id number] IMPRESSION: There is a 22.6 x 18.4 cm heterogeneous collection in the soft tissues. Differential includes abscess and hematoma.
--- NOTE | 2023-01-25 17:39 | CTR_ITS ---
PROCEDURE INFORMATION: Exam: CT Right Lower Extremity With Contrast, Hip Exam date and time: 01/25/2023 6:28 PM Age: 67 years old Clinical indication: Pain; Right; Prior surgery; Surgery date: 6+ months; Surgery type: 10x surgeries on R hip, most recent 3 years ago; Additional info: Soft tissue fluid collection, eval depth/spread/origin TECHNIQUE: Imaging protocol: CT of the right lower extremity with intravenous contrast was performed. Exam focused on the hip. Radiation optimization: All CT scans at this facility use at least one of these dose optimization techniques: automated exposure control; mA and/or kV adjustment per patient size (includes targeted exams where dose is matched to clinical indication); or iterative reconstruction. Contrast material: OMNI 350; Contrast volume: 100 ml; Contrast route: INTRAVENOUS (IV); REPORTING DATA: Count of CT and Cardiac NM exams in prior 12 months: This patient has received 0 known CTs and 0 known cardiac nuclear medicine studies in the 12 months prior to the current study. COMPARISON: CT hip RT wo con* [id number] 10/15/2019 9:03 AM RADIATION DOSE METRICS: Total DLP (mGy-cm): 614.56 FINDINGS: Bones/joints: Extensive postoperative changes in the right pelvis and right hip including right total hip replacement. There is a heterogeneous fluid collection in the soft tissues surrounding the right hip joint which has enlarged when compared to the prior study and currently measures 25.2 by 21.9 cm in the transverse/craniocaudad dimensions. This fluid collection extends anterior, posterior, medial, and lateral to the hip replacement and extends to abut the right inferior and superior pubic rami. There is cortical irregularity of the adjacent superior/inferior pubic rami. Stranding is present in the soft tissues surrounding this collection. Soft tissues: See Bones/joints finding. CT/CT hip RT w con [id number] IMPRESSION: Heterogeneous fluid collections surrounds the right total hip replacement enlarged when compared to the prior study, consistent with abscess formation. There is cortical irregularity of the adjacent right superior and inferior pubic rami raising concern for osteomyelitis.
[2023-01-25 18:20] LABS: Basophils % 0.3 %; Eosinophils # 0.2 10^3/uL (0.0-0.8); Eosinophils % 3.2 %; Hematocrit 35.1 % (42.0-52.0); Hemoglobin 10.5 g/dL (11.7-16.6); Lymphocytes # 0.6 10^3/uL (0.8-4.8); Lymphocytes % 8.3 %; Mean Corpuscular HGB Conc 29.9 g/dL (30.0-36.0); Mean Corpuscular Hemoglobin 27.8 pg (28.0-34.0); Mean Corpuscular Volume 92.9 fl (80-94); Monocytes # 0.6 10^3/uL (0.2-0.9); Monocytes % 8.1 %; Neutrophils # 5.92 10^3/uL (1.8-7.7); Neutrophils % 79.7 %; Nucleated Red Blood Cells % 0 %; Platelet Count 238 10^3/cmm (130-400); Red Blood Count 3.78 10^6/uL (4.1-5.3); Red Cell Distribution Width 16.1 % (12.1-15.1); White Blood Count 7.4 10^3/uL (4.0-10.0)
[2023-01-25] MEDS: iohexol 350 mg/mL 500 mL Btl (per mL) IV (18:36)
[2023-01-25 18:41] VITALS: BP 125/73; PULSE 89; RESP 18; O2SAT 95
[2023-01-25 18:41] LABS: Blood Urea Nitrogen 20 mg/dL (8-23); Calcium 9.1 mg/dL (8.5-10.5); Carbon Dioxide 28 mmol/L (22-29); Chloride 103 mmol/L (98-107); Glomerular Filtration Rate 83.7 mL/min (90-130); Glucose 87 mg/dL (65-115); Osmolality Calculated 296 mOsm/kg (285-295); Sodium 142 mmol/L (136-145)
[2023-01-25 19:12] LABS: Erythrocyte Sedimentation Rate 26 mm/hr (0-10)
[2023-01-25 19:29] LABS: C Reactive Protein 16.6 mg/L (0.0-4.9)
[2023-01-25] MEDS: clindamycin 150 mg Capsule 300 MG PO (20:29)
== END 2023-01-25 20:40 | disposition home or self-care (01) ==
PROVIDERS: Emergency Provider Emergency Medicine; PCP Family Medicine
DX: L98.495 Non-pressure chronic ulcer of skin of other sites with muscle involvement without evidence of necrosis (principal); I10 Essential (primary) hypertension; Z86.73 Personal history of transient ischemic attack (TIA), and cerebral infarction without residual deficits; Z96.641 Presence of right artificial hip joint; Z79.02 Long term (current) use of antithrombotics/antiplatelets; L02.415 Cutaneous abscess of right lower limb
CPT/HCPCS: 36415; 73701; 76882; 80048; 85025; 85651; 86140; 87040; 99285; Q9967

== ENCOUNTER 2023-01-27 19:44 | Emergency (ER) | payer MEDICARE, OTHER, MEDICAID, SELFPAY ==
[2023-01-27 19:46] VITALS: BP 122/88; PULSE 90; RESP 18; TEMP 37.6; O2SAT 95; BMI 31.9
--- NOTE | 2023-01-27 19:46 | W.ED.EXTPRO ---
HPI - Extremity Problem General: Chief complaint: Wound/Laceration Stated complaint: leg wound Time Seen by Provider: 01/27/23 19:46 History of Present Illness: Mr Mota is a 67-year-old gentleman presenting for evaluation of wound. I saw him 2 days ago and at that time he had a ultimately 1.5 to 2 cm roughly circular wound in the right lateral hip that correlated with large recurrent periprosthetic fluid collection. After discussion with orthopedics patient was satisfactory for outpatient follow-up and initiated on antibiotics. He went to shower and change the dressing today and had bleeding. Denies other new changes in symptoms. No other specific changes in health, exacerbating, or alleviating factors identified. Onset (ago): hour(s) Location: right and lower extremity Associated symptoms: Reports no associated symptoms Review of Systems General: Reports: 10 or more systems reviewed and unremarkable except in HPI and below PFSH ED PFSH: Medical History Acute kidney injury superimposed on CKD Anemia Ankylosing spondylitis Bilateral sacroiliitis Bronchitis Encounter for screening for other viral diseases GERD (gastroesophageal reflux disease) High risk medication use History of CVA (cerebrovascular accident) HLA B27 (HLA B27 positive) Hyperkalemia Hypertension Immunization counseling Inflammatory arthritis Stroke Umbilical hernia Surgical History History of heart bypass surgery History of hernia repair History of hip replacement bilateral with mult surg and screws etc History of hip replacement 07/2020 S/P hip replacement Family History Other CAD (coronary artery disease) Diabetes Hypertension Rheumatoid arthritis Stroke Denies family history of Lupus Clotting disorder Dementia Hyperlipidemia Psychiatric illness Chronic kidney disease (CKD) Suicide Anesthesia complication Bleeding disorder Lung disease Cancer Social History Smoking and tobacco status: never smoked Alcohol intake: never Physical Exam Const: COMMON NORMALS: alert GENERAL APPEARANCE: cooperative and well developed HENMT: COMMON NORMALS: normocephalic and atraumatic HEAD & SCALP: normocephalic and atraumatic Eye: COMMON NORMALS: conjunctivae normal CONJUNCTIVA: Yes conjunctivae normal SCLERA: sclerae normal Neck/C-Spine: COMMON NORMALS: supple GENERAL: Yes trachea midline Resp: COMMON NORMALS: clear to auscultation bilaterally EFFORT & INSPECTION: Yes able to speak in complete sentences AUSCULTATION: clear to auscultation bilaterally Cardio: COMMON NORMALS: regular rate and regular rhythm RATE: regular rate RHYTHM: regular rhythm GI: COMMON NORMALS: Soft to palpation PALPATION: Yes Soft to palpation and No Tenderness to palpation present (GI) Extremity: NARRATIVE EXTREMITY EXAM: Right lateral hip region continues to have warmth and tenderness as well as erythema. Thick brown material now appreciated in the wound bed, no active bleeding. Appearance is not entirely typical of coagulated blood however somewhat unclear. GENERAL: Yes normal exam except as noted and No edema Neuro: COMMON NORMALS: moves all extremities SENSORIUM/ORIENTATION: Yes alert and No Orientation impaired Psych: COMMON NORMALS: mental status grossly normal and Normal thought process present THOUGHT PROCESS: Normal thought process present Course Vital Signs: Vital signs: Vital Signs Temperature 99.7 F H 01/27/23 19:46 Pulse Rate 90 01/27/23 19:54 Respiratory Rate 18 01/27/23 19:46 Blood Pressure 116/75 01/27/23 19:54 Pulse Oximetry 93 01/27/23 19:54 Oxygen Delivery Me thod Room Air 01/27/23 19:54 MDM - Extremity (Nontraumatic) Medical Decision Making 67-year-old gentleman presenting due to drainage from right hip wound. Exam as above. Labs with no leukocytosis, similar hemoglobin to prior. Metabolic panel unremarkable. Prior imaging reviewed. Wound cleaned/irrigated and repaired to be liquefied hematoma expressed. Packing placed and dressing reapplied. We will refer for wound care however ultimately patient needs orthopedic follow-up as previously discussed. The results of ED evaluation were discussed with the patient including prescriptions and/or symptomatic cares (if applicable) including appropriate and responsible use, followup plan, and return precautions. The patient verbalized understanding and felt safe for discharge. Medical Records I reviewed the patient's medical records. Lab Data I reviewed the patient's lab results. 01/27/23 20:45 01/27/23 20:45 Laboratory Results WBC 9.9 10^3/uL (4.0-10.0) 01/27/23 20:45 RBC 3.75 10^6/uL (4.1-5.3) L 01/27/23 20:45 Hgb 10.5 g/dL (11.7-16.6) L 01/27/23 20:45 Hct 34.1 % (42.0-52.0) L 01/27/23 20:45 MCV 90.9 fl (80-94) 01/27/23 20:45 MCH 28.0 pg (28.0-34.0) 01/27/23 20:45 MCHC 30.8 g/dL (30.0-36.0) 01/27/23 20:45 RDW 15.9 % (12.1-15.1) H 01/27/23 20:45 Plt Count 238 10^3/cmm (130-400) 01/27/23 20:45 MPV 9.7 fL (7.4-10.4) 01/27/23 20:45 Neut % (Auto) 86.4 % 01/27/23 20:45 Lymph % (Auto) 3.6 % 01/27/23 20:45 [place] % (Auto) 7.5 % 01/27/23 20:45 Eos % (Auto) 1.7 % 01/27/23 20:45 Baso % (Auto) 0.3 % 01/27/23 20:45 Neut # (Auto) 8.52 10^3/uL (1.8-7.7) H 01/27/23 20:45 Lymph # (Auto) 0.4 10^3/uL (0.8-4.8) L 01/27/23 20:45 [place] # (Auto) 0.7 10^3/uL (0.2-0.9) 01/27/23 20:45 Eos # (Auto) 0.2 10^3/uL (0.0-0.8) 01/27/23 20:45 Baso # (Auto) 0.0 10^3/uL (0.0-0.1) 01/27/23 20:45 Nucleated RBC % (auto) 0 % 01/27/23 20:45 Nucleated RBCs # 0.0 /100WBC 01/27/23 20:45 Sodium 140 mmol/L (136-145) 01/27/23 20:45 Potassium 4.0 mmol/L (3.5-5.1) 01/27/23 20:45 Chloride 102 mmol/L (98-107) 01/27/23 20:45 Carbon Dioxide 26 mmol/L (22-29) 01/27/23 20:45 Anion Gap 16.0 (5-19) 01/27/23 20:45 BUN 17 mg/dL (8-23) 01/27/23 20:45 Creatinine 0.9 mg/dL (0.7-1.2) 01/27/23 20:45 GFR Calculation 83.7 mL/min (90-130) L 01/27/23 20:45 Glucose 96 mg/dL (65-115) 01/27/23 20:45 Calculated Osmolality 291 mOsm/kg (285-295) 01/27/23 20:45 Calcium 9.0 mg/dL (8.5-10.5) 01/27/23 20:45 Discharge Plan Discharge Patient Disposition: Home Clinical Impression: Abscess of hip, right Condition: Stable Prescriptions: No Action lisinopril 10 mg tablet 10 mg PO DAILY Hold Instructions: Resume on 02/16/22. furosemide [Lasix] 20 mg tablet 20 mg PO QAM Hold Instructions: Resume on 02/16/22. spironolactone 25 mg tablet 25 mg PO DAILY Hold Instructions: Resume on 02/12/22. clopidogrel 75 mg tablet 75 mg PO DAILY atorvastatin 80 mg tablet 80 mg PO DAILY cyclobenzaprine 10 mg tablet 10 mg PO TID metoclopramide HCl [Reglan] 5 mg tablet 5 mg PO TID metoprolol tartrate 100 mg tablet 50 mg PO DAILY Hold Instructions: Resume on 02/12/22. sulfamethoxazole-trimethoprim [Bactrim DS] 800-160 mg tablet 1 tab PO DAILY Hold Instructions: Resume on 02/23/22. hydrocodone-acetaminophen 7.5-325 mg tablet 1 tab PO Q8H PRN (Reason: Pain) pantoprazole 40 mg tablet,delayed release (DR/EC) 40 mg PO BID Enbrel 50 mg/mL (1 mL) syringe 50 mg SUBCUT Q7D Qty: 4 3RF leflunomide 20 mg tablet 20 mg PO DAILY Qty: 90 0RF diclofenac sodium 75 mg tablet,delayed release (DR/EC) 75 mg PO Q12H PRN (Reason: moderate to severe pain) Qty: 60 0RF prednisone 10 mg tablet 10 mg PO DAILY PRN (Reason: for flares) Qty: 30 1RF gabapentin 300 mg capsule 600 mg PO TID Discharge Orders: Discharge ED (Routine); Ordered 01/27/23 Ordered By: Shekhar Kay Referrals: Ermelinda Montana MD [Primary Care Provider] - Discharge Diet: Usual diet Discharge Activity: Limit activity as instructed Patient Instructions: Acute Wound Care (ED) Activity Restrictions/Additional Instructions: Thank you for visiting the emergency department. You were seen and evaluated for drainage from wound. The most likely cause is spontaneous drainage from deep hip abscess. Packing was placed. This should be changed in 48 hours and subsequently daily thereafter. I would expect continued drainage however please watch for signs of infection. Keep the area clean and dry. Continue antibiotics and plan for follow-up with orthopedics at [facility]. Return for fevers, lightheaded, chest pain or racing heart, shortness of breath, or anything that you are concerned about and feel needs emergency department evaluation. Coding Level of Care Code ED [place] for Luis Meek
[2023-01-27 19:54] VITALS: BP 116/75; PULSE 90; O2SAT 93
[2023-01-27] MEDS: HYDROcodone-acetaminophen 5-325 mg Tablet 0.5 TAB PO (20:21)
[2023-01-27 21:18] LABS: Basophils % 0.3 %; Eosinophils # 0.2 10^3/uL (0.0-0.8); Eosinophils % 1.7 %; Hematocrit 34.1 % (42.0-52.0); Hemoglobin 10.5 g/dL (11.7-16.6); Lymphocytes # 0.4 10^3/uL (0.8-4.8); Lymphocytes % 3.6 %; Mean Corpuscular HGB Conc 30.8 g/dL (30.0-36.0); Mean Corpuscular Volume 90.9 fl (80-94); Mean Platelet Volume 9.7 fL (7.4-10.4); Monocytes # 0.7 10^3/uL (0.2-0.9); Monocytes % 7.5 %; Neutrophils # 8.52 10^3/uL (1.8-7.7); Neutrophils % 86.4 %; Nucleated Red Blood Cells % 0 %; Platelet Count 238 10^3/cmm (130-400); Red Blood Count 3.75 10^6/uL (4.1-5.3); Red Cell Distribution Width 15.9 % (12.1-15.1); White Blood Count 9.9 10^3/uL (4.0-10.0)
[2023-01-27 21:33] LABS: Blood Urea Nitrogen 17 mg/dL (8-23); Carbon Dioxide 26 mmol/L (22-29); Chloride 102 mmol/L (98-107); Glomerular Filtration Rate 83.7 mL/min (90-130); Glucose 96 mg/dL (65-115); Osmolality Calculated 291 mOsm/kg (285-295); Sodium 140 mmol/L (136-145)
--- NOTE | 2023-01-28 10:46 | PC.SOCIAL ---
Addendum entered by Sabine Arriaga 02/07/23 14:54: appointment was cancelled Original Note: Wound Care Referral Referral sent to wound care at this time. Clinic to contact patient with appt date/time.
== END 2023-01-27 22:09 | disposition home or self-care (01) ==
PROVIDERS: Emergency Provider Emergency Medicine; PCP Family Medicine
DX: L02.415 Cutaneous abscess of right lower limb (principal); Z79.02 Long term (current) use of antithrombotics/antiplatelets; I10 Essential (primary) hypertension; Z86.73 Personal history of transient ischemic attack (TIA), and cerebral infarction without residual deficits; Z96.643 Presence of artificial hip joint, bilateral
CPT/HCPCS: 80048; 85025; 99283